=== PATIENT | male | born 1990 | race Caucasian/White ===

== ENCOUNTER → 2021-03-13 10:56 | Outpatient (BNVA) | payer OTHER, SELFPAY | PROVIDERS: PCP Internal Medicine; Referring Provider Internal Medicine; Visit Provider Surgery | DX: K62.89 Other specified diseases of anus and rectum (principal) | CPT/HCPCS: 46600; 99202 ==

== ENCOUNTER 2022-05-23 17:10 | Emergency (ER) | payer OTHER, SELFPAY ==
--- NOTE | ~2022-05-23 | XR_ITS ---
EXAMINATION: XR LUMBOSACRAL SPINE CLINICAL INFORMATION: Injury. Evaluate for fracture. COMPARISON: None TECHNIQUE: Three views of the lumbosacral spine. FINDINGS: Mild levocurvature and mild loss of lordotic curvature of the lumbar spine. The lumbar vertebra have normal density, height and alignment. The anterior and posterior elements are normal. No evidence of vertebral compression fracture. The disc spaces are maintained. Sacrum and sacroiliac joints are unremarkable. The soft tissues are grossly normal. XR/XR lumbar spine 2-3V IMPRESSION: * No acute fracture or malalignment of the lumbar spine. * The findings of mild lumbar levocurvature and decreased lordotic curvature are of uncertain chronicity.
[2022-05-23 17:21] VITALS: BP 114/68; BP 138/64; PULSE 84; PULSE 88; RESP 16; TEMP 36.3; O2SAT 98; BMI 38.2
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
== END 2022-05-23 20:07 | disposition home or self-care (01) ==
PROVIDERS: Emergency Provider Student in an Organized Health Care Education/Training Program; PCP Internal Medicine
DX: M54.50 Low back pain, unspecified (principal)
CPT/HCPCS: 72100; 99283; 99284

== ENCOUNTER 2022-10-03 07:59 | Outpatient (REF) | payer OTHER, SELFPAY ==
[2022-10-03 08:15] LABS: MANUAL DIFF FLAG NO
[2022-10-03 08:21] LABS: Basophils Percent Auto 0.4 % (0-2); Eosinophils Absolute Auto 0.1 X10*3/uL (0.0-0.4); Eosinophils Percent Auto 1.8 % (0-4); Hematocrit 45.5 % (42.0-52.0); Hemoglobin 14.9 g/dl (14.0-18.0); Imm Gran Abs Auto 0.03 X10*3/uL (0.00-0.03); Imm Gran Pct Auto 0.4 % (0.0-0.4); Lymphocytes Absolute Auto 1.9 X10*3/uL (1.2-4.9); Lymphocytes Percent Auto 23.6 % (20-40); Mean Corpuscular HGB Conc 32.7 g/dl (31.0-36.0); Mean Corpuscular Hemoglobin 28.4 pg (27.0-33.0); Mean Corpuscular Volume 86.8 fL (80.0-98.0); Mean Platelet Volume 9.8 fL (9.4-12.4); Monocytes Absolute Auto 0.4 X10*3/uL (0.1-1.2); Monocytes Percent Auto 5.6 % (2-11); Neutrophils Absolute Auto 5.4 x10*3/uL (2.0-8.3); Neutrophils Percent Auto 68.2 % (45-73); Platelet Count 274 X10*3/uL (160-400); Red Blood Count 5.24 X10*6/uL (4.60-5.80); Red Cell Distribution Width 12.4 % (11.0-16.0); White Blood Count 7.9 X10*3/uL (4.8-10.8)
[2022-10-03 09:02] LABS: Appearance Urine Clear; Color Urine Yellow; Glucose Urine UA Negative (Negative); Leukocyte Esterase Urine Negative (Negative); Nitrite Urine Negative (Negative); Urine Blood Negative (Negative); Urine Ketones Negative (Negative); Urine Protein Negative (Neg-Trace)
[2022-10-03 09:05] LABS: Bacteria Urine None Seen (None Seen); Hyaline Casts Urine 0-2 /LPF (0-2); RBC Urine 0-2 /HPF (0-2); Squamous Epithelial Cell Urine 0-2 /HPF (0-2); WBC Urine 0-5 /HPF (0-5)
[2022-10-03 09:09] LABS: Alanine Aminotransferase 23 U/L (0-40); Albumin Level 4.3 g/dL (3.5-5.0); Alkaline Phosphatase 80 U/L (39-117); Anion Gap 9 (12-20); Aspartate Amino Transferase 16 U/L (5-37); Bilirubin Total 0.5 mg/dL (0.0-1.0); Blood Urea Nitrogen 11 mg/dL (9-16); Calcium 9.4 mg/dL (8.4-10.2); Carbon Dioxide 24 mmol/L (22-29); Chloride 111 mmol/L (96-108); Cholesterol 137 mg/dL; Estimated Glomerular Filt Rate > 60; Free T4 (Free Thyroxine) 1.07 ng/dL (0.71-1.85); Glucose Random 96 mg/dL (60-115); HDL Cholesterol 37 mg/dL; LDL Cholesterol Calculated 89 mg/dl; Potassium 4.2 mmol/L (3.3-5.1); Sodium 140 mmol/L (135-145); Total Protein 6.7 g/dL (6.5-8.0); Triglycerides 58 mg/dL
[2022-10-03 09:21] LABS: Folate 8.3 ng/mL (> or = 4.0); Vitamin B12 476 pg/mL (200-900)
== END 2022-10-03 08:00 | disposition home or self-care (01) ==
LOC: HO.LAB 07:59
PROVIDERS: PCP Internal Medicine; Visit Provider Internal Medicine
DX: R56.9 Unspecified convulsions (principal); E78.00 Pure hypercholesterolemia, unspecified
CPT/HCPCS: 36415; 80053; 80061; 81001; 82607; 82746; 84439; 84443; 85025

== ENCOUNTER 2023-04-28 12:31 | Outpatient (AMB) | payer OTHER, SELFPAY ==
--- NOTE | 2023-04-28 12:32 | MHC.OFFWIV ---
Intake Vital Signs 04/28/23 12:33 Height 5 ft 6 in BP 122/78 Blood Pressure Location Rt brachial Position Sitting Pulse 76 Pulse Source Pulse Oximeter Temp 96.8 F Temp Source Temporal Artery Scan Pulse Oximetry (%) 98 Oxygen Delivery Method Room Air Intake Visit Reasons: EST/yeast rash Intake Note: pt is here for c/o possible yeast rash buttocks Patient Tobacco Use Status: Never used Tobacco Allergies amoxicillin [AMOXICILLIN] Allergy (Unknown, Verified 04/28/23 12:35) Unknown codeine [CODEINE] Allergy (Unknown, Verified 04/28/23 12:35) Unknown lorazepam [From ATIVAN] Allergy (Unknown, Verified 04/28/23 12:35) Unknown Do you need a note to return to daycare/school/sports/work: No HPI HPI Comments History of Present Illness Details 891 32-year-old male presents with red rash between his buttocks started this morning history of CVA, bipolar, seizures. Patient states he has been cleaning it with soap and water but it is not making symptoms better. He is coming from day program with staff member at bedside who states patient has only been complaining of symptoms for a day. Patient poor historian. However, denies fevers, chills, chest pain, shortness of breath, nausea, vomiting, headache, vision changes, fatigue and malaise. On exam erythema and warmth right buttocks , medial aspect , central induration however no fluctuance. Area measuring about 2 cm x 2 cm, round. likely cellulitis with forming abscess. No fluctuance or drainable abscess at this time. No signs of necrotizing infection or fourniers gangrene plan p.o. antibiotics, doxycycline as patient has an amoxicillin allergy. Educated patient on diagnosis and treatment plan, answered all question, patient verbalizes understanding. At this time patient will be discharged home, advised to return with new or worsening symptoms. Educated on worrisome signs and symptoms and when to return. At this time I feel comfortable discharge home. [facility] Medical History Anal pain Annual physical exam Arthralgia Cognitive impairment CVA (cerebral vascular accident) Generalized anxiety disorder Meningitis Mood disorder Seizure Seizures Surgical History History of ankle surgery History of surgery on arm History of surgery on lower extremity Family History Maternal Grandfather Myocardial infarct Social History Housing: Assisted Living Facility Alcohol intake: never Patient Tobacco Use Status: Never used Tobacco e-Cigarette/Vaping Use: Never Used Second Hand Smoke Exposure: No service: No Current occupational status: unemployed Cognitive needs: Yes Hearing needs: No Vision needs: No Review of Systems Const Details: Constitutional : No Weight loss, No Fever, No Chills, No Fatigue, No Malaise ENT/Mouth : No sore throat, No Rhinorrhea Eyes: No Eye Pain, No Swelling, No Redness Cardiovascular : No Chest Pain, No SOB, No Dyspnea on Exertion, No Orthopnea, No Edema, No Palpitations Respiratory : No Cough, No Sputum, No Wheezing Gastrointestinal : No Nausea, No Vomiting, No Diarrhea, No Constipation, No abdominal Pain, No Hematochezia, No Melena Genitourinary : No Dysuria, No Urinary Frequency, No Hematuria, Musculoskeletal : No joint pain, No Myalgias, No Joint Swelling Skin : No Skin Lesions, + rash Neuro : No Weakness, No Numbness, No Dizziness, No Headache Psych : No Anxiety/Panic, No Depression All other systems reviewed and are negative All systems reviewed & are unremarkable except as noted in HPI and below Physical Exam Vital Signs: Last Vital Signs Temp 96.8 F 04/28/23 12:33 Pulse 76 04/28/23 12:33 BP 122/78 04/28/23 12:33 Pulse Ox 98 04/28/23 12:33 Oxygen Delivery Method Room Air 04/28/23 12:33 vss Appearance: Alert.? Oriented X3.? No acute distress.? Head: Normocephalic, atraumatic, no step-offs or deformities Eyes: Pupils equal, round and reactive to light.? CVS: Normal heart rate and rhythm.? Pulses normal.? Respiratory: No respiratory distress.? Breath sounds normal.? Abdomen: Soft and nontender.? Skin: Skin warm and dry.? Normal skin color.? Normal skin turgor.? Extremities: No lower extremity edema.? No calf ttp. 5/5 strength to bilateral upper and lower extremities erythema and warmth right buttocks , medial aspect , central induration however no fluctuance. Area measuring about 2 cm x 2 cm, round. Back: No midline tenderness, no C-spine tenderness, full range of motion, no CVA tenderness bilaterally Neuro: Oriented X 3.? No motor deficit.? No sensory deficit. CN 2-12 intact Assessment & Plan Assessment & Plan (1) Acute cellulitis: Code(s): L03.90 - Cellulitis, unspecified Plan Take your medications as prescribed. If you were prescribed antibiotics today, it is important that you take your medication to their entirety, do not skip any doses, do not finish them early. Follow-up with your primary care provider this week. Return to the emergency department with new or worsening symptoms. Such as fevers, chills, chest pain, shortness of breath, nausea, vomiting, dizziness, headache, vision changes, lethargy In case of emergency call 911 Medications: New doxycycline hyclate 100 mg PO BID 7 days 14 caps 0RF Coding Level of Care Code Est Pt Level 3 (43213) Diagnoses Acute cellulitis L03.90
[2023-04-28 12:33] VITALS: BP 122/78; PULSE 76; TEMP 36; O2SAT 98
== END 2023-04-28 13:20 | disposition home or self-care (01) ==
PROVIDERS: PCP Internal Medicine; Visit Provider Physician Assistant
DX: L03.90 Cellulitis, unspecified (principal)
CPT/HCPCS: 99213

== ENCOUNTER 2023-05-24 11:40 | Outpatient (AMB) | payer OTHER, SELFPAY ==
[2023-05-24 12:01] VITALS: BP 128/62; PULSE 97; TEMP 35.8; O2SAT 100
--- NOTE | 2023-05-24 12:01 | AM.OFFWIN_ITS ---
Intake Vital Signs 05/24/23 12:01 Height 5 ft 6 in BP 128/62 Blood Pressure Location Lt brachial Position Sitting Pulse 97 Pulse Source Pulse Oximeter Temp 96.4 F L Temp Source Temporal Artery Scan Pulse Oximetry (%) 100 Oxygen Delivery Method Room Air Intake Visit Reasons: EP ?Cyst on butt Intake Note: Pt is here c/o having a possible cyst Patient Tobacco Use Status: Never used Tobacco Allergies amoxicillin [AMOXICILLIN] Allergy (Unknown, Verified 05/24/23 12:19) Unknown codeine [CODEINE] Allergy (Unknown, Verified 05/24/23 12:19) Unknown lorazepam [From ATIVAN] Allergy (Unknown, Verified 05/24/23 12:19) Unknown Do you need a note to return to daycare/school/sports/work: No HPI EP ?Cyst on butt HPI Details Patient presents with pain in his rectal area x2 days. He states ?I have caught it in time this time ?. Patient lives in a nursing home and presents with a staff member who assists with HPI today. He was seen in this clinic 1 month ago for a perirectal cyst which did not require I&D and was treated with doxycycline successfully. He has now been off antibiotics for over 2 weeks any starting to experience pain again. Did review note from his previous visit. [facility] Medical History Anal pain Annual physical exam Arthralgia Cognitive impairment CVA (cerebral vascular accident) Generalized anxiety disorder Meningitis Mood disorder Seizure Seizures Surgical History History of ankle surgery History of surgery on arm History of surgery on lower extremity Family History Maternal Grandfather Myocardial infarct Social History Housing: Assisted Living Facility Alcohol intake: never Patient Tobacco Use Status: Never used Tobacco e-Cigarette/Vaping Use: Never Used Second Hand Smoke Exposure: No service: No Current occupational status: unemployed Cognitive needs: Yes Hearing needs: No Vision needs: No Review of Systems Const Reports as per HPI and Reports no additional complaints Reports no additional complaints and Reports as per HPI Skin/Breast Denies lesions Physical Exam Vital Signs: Last Vital Signs Temp 96.4 F L 05/24/23 12:01 Pulse 97 05/24/23 12:01 BP 128/62 05/24/23 12:01 Pulse Ox 100 05/24/23 12:01 Oxygen Delivery Method Room Air 05/24/23 12:01 Const General: cooperative, comfortable and no acute distress Orientation/consciousness: patient oriented x3 Resp Effort & Inspection: normal respiratory effort Auscultation: clear to auscultation bilaterally Cardio Rate: regular rate Rhythm: regular rhythm Heart sounds: S1 normal heart sound present and S2 normal heart sound present GI Other: Area of tenderness without abscess or induration there is first-degree skin breakdown of the right side of the perirectal area in the fold less than 1 cm in size. Rectal Exam - Male: Yes Visual inspection abnormal (See above description) and No External hemorrhoid(s) present Neuro General: patient oriented x3 Assessment & Plan Assessment & Plan (1) Perirectal skin irritation: Code(s): K62.89 - Other specified diseases of anus and rectum Plan: Will have patient another course of doxycycline given potential for abscess. I have also prescribed A and D type barrier cream to use after bathing and BMs to help prevent skin breakdown. [facility] should follow this closely patient is quite capable of stating when he has pain and he should return him if symptoms do not improve or return. Medications: New doxycycline hyclate 100 mg PO BID 20 caps 0RF 10 days [id number] A-[id number] 1-10 % (A and D Diaper Rash Cream) topically daily PRN; apply after bathing and BMs. 42.5 grams 1RF skin irritation Coding Level of Care Code Est Pt Level 3 (66972) Diagnoses Perirectal skin irritation K62.89
== END 2023-05-24 12:57 | disposition home or self-care (01) ==
PROVIDERS: PCP Internal Medicine; Visit Provider Physician Assistant
DX: K62.89 Other specified diseases of anus and rectum (principal)
CPT/HCPCS: 99213

== ENCOUNTER 2023-06-10 07:53 | Outpatient (AMB) | payer OTHER, SELFPAY ==
[2023-06-10 08:07] VITALS: BP 124/76; PULSE 59; O2SAT 98; BMI 39.1
--- NOTE | 2023-06-10 08:07 | MHC.PC.OV ---
Vital Signs 06/10/23 08:07 Height 5 ft 6 in Weight 242 lb BMI 39.1 BP 124/76 Blood Pressure Location Lt brachial Position Sitting Pulse 59 Pulse Source Pulse Oximeter Pulse Oximetry (%) 98 Oxygen Delivery Method Room Air Intake Visit Reasons: follow up with cyst Allergies amoxicillin [AMOXICILLIN] Allergy (Unknown, Verified 06/10/23 08:08) Unknown codeine [CODEINE] Allergy (Unknown, Verified 06/10/23 08:08) Unknown lorazepam [From ATIVAN] Allergy (Unknown, Verified 06/10/23 08:08) Unknown Tobacco use date assessed: 06/10/23 Dental Screening Dental Screen Date: 06/10/23 Did you have a dental visit in the last 12 months?: Yes Did you have a dental problem in the last 6 months where you did not have access to dental care?: No Was dental information given to patient?: Patient has dentist HPI HPI Comments History of Present Illness Details ?? 32-year-old male history of CVA at , bipolar,seizure and arthralgia.? Patient last seen in September, patient presents today for follow-up on cyst. Review of the notes patient was seen in the walk-in clinic multiple times for rectal pain and irritation treated with doxycycline x 2, peter-rectal cyst did not require I&D. Patient long term working states cyst resolved. Patient denies trinh rectal pain, fevers and chills. Upon examination right rectal sbcess resolved, no surrounding erythema. [facility] woul like to continue applying A+D ointment as it is preventing irritation, refill sent on ointment. Patient reports popping right ear and unable to hear. Exam revealed,Impacted bilateral cerumen, Small amount of cerumen removed in office by lefty, patient tolerated well. Denies pain, lightheadedness/dizziness. Debrox drops sent to patient's pharmacy and patient advised to follow up in 2 weeks for ear lavage. [facility] Medical History Anal pain Annual physical exam Arthralgia Cognitive impairment CVA (cerebral vascular accident) Generalized anxiety disorder Meningitis Mood disorder Seizure Seizures Surgical History History of ankle surgery History of surgery on arm History of surgery on lower extremity Family History (Updated 06/10/23 @ 08:09 by Raina Benavides CMA) Maternal Grandfather Myocardial infarct Social History Housing: Assisted Living Facility Alcohol intake: never Patient Tobacco Use Status: Never used Tobacco e-Cigarette/Vaping Use: Never Used Second Hand Smoke Exposure: No service: No Current occupational status: unemployed Cognitive needs: Yes Hearing needs: No Vision needs: No Questionnaire PHQ-9 Over the last 2 weeks, how often have you been bothered by any of the following problems? 1. Little interest or pleasure in doing things: not at all 2. Feeling down, depressed, or hopeless: not at all 3. Trouble falling or staying asleep, or sleeping too much: not at all 4. Feeling tired or having little energy: not at all 5. Poor appetite or overeating: not at all 6. Feeling bad about yourself - or that you are a failure or have let yourself or your family down: not at all 7. Trouble concentrating on things, such as reading the newspaper or watching television: not at all 8. Moving or speaking so slowly that other people could have noticed. Or the opposite - being so fidgety or restless that you have been moving around a lot more than usual: not at all 9. Thoughts that you would be better off or of hurting yourself in some way: not at all Total score: 0 Depression Screening Interpretation: Negative Source: Developed by Drs. Brody Sarabia, Marion Richardson, Eric Peraza and colleagues, with an educational kath from [employer]. Thrive Questionnaire Date Thrive assessed: 06/10/23 I am a: Parent/Caregiver What is your living situation today?: I have a steady place to live Within the past 12 months, did the food you bought not last and you didn't have the money to get more?: Never true Within the past 12 months, did you worry whether your food would run out before you got money to buy more?: Never true Do you have trouble paying for medicines?: No Do you have trouble getting transportation to medical appointments?: No Do you have trouble paying your heating and electricity bill?: No Do you have trouble taking care of your child, family member or friend?: No Do you have trouble with day-to-day activities such as bathing, preparing meals, shopping, managing finances, etc.?: No Are you currently unemployed and looking for a job?: No Are you interested in more education?: No Currently or been in a relationship where the following occur: no concerns reported AUDIT C Alcohol Use Questionnaire (AUDIT-C) 1. How often do you have a drink containing alcohol?: Never Total Score: 0 ROLAND-7 AMB Questionnaire ROLAND-7 Date ROLAND - 7 assessed: 06/10/23 Feeling nervous, anxious, or on edge: 0 = Not at all Not being able to stop or control worryin = Not at all Worrying too much about different things: 0 = Not at all Trouble relaxin = Not at all Being so restless that it is hard to sit still: 0 = Not at all Becoming easily annoyed or irritable: 0 = Not at all Feeling afraid as if something awful might happen: 0 = Not at all Total ROLAND-7 score (0-4 normal; 5-9 mild; 10-14 moderate; 15-21 severe): 0 Source: Developed by Drs. Brody Sarabia, Marion Richardson, Eric Peraza and colleagues, with an educational kath from [employer]. Review of Systems Const Denies chills, Denies fatigue, Denies fever(s) and Denies poor appetite Eyes Denies no additional complaints ENT Reports Normal hearing present Card Denies chest pain, Denies syncope, Denies rapid heart rate and Denies dyspnea Resp Denies cough and Denies dyspnea GI Denies change in stool character, Denies constipation, Denies diarrhea, Denies nausea and Denies vomiting Denies dysuria, Denies urinary frequency and Denies urinary urgency Neuro Reports Normal hearing present, Denies confusion and Denies syncope Psych Denies confusion Endo Denies fatigue Physical exam (Primary Care) Vital Signs: Last Vital Signs Pulse 59 06/10/23 08:07 BP 124/76 06/10/23 08:07 Pulse Ox 98 06/10/23 08:07 Oxygen Delivery Method Room Air 06/10/23 08:07 BMI result Body Mass Index 39.1 Tobacco/Smoking Status: Tobacco use Status Tobacco use date assessed 06/10/23 06/10/23 08:13 Patient Tobacco Use Status Never used Tobacco 06/10/23 08:13 e-Cigarette/Vaping Use Never Used 06/10/23 08:13 PHQ-9: PHQ-9 Score PHQ-9: Total score 0 06/10/23 08:15 Depression Screening Interpretation: Negative Thrive Assessment: Date of Thrive Assessment Date Thrive assessed 06/10/23 06/10/23 08:13 Currently or been in a relationship where the following occur: no concerns reported Const General: No confusion Orientation/consciousness: No confusion HENMT Head: Yes normocephalic and Yes atraumatic Ears: TM abnormal obstructed by cerumen bilateral Eyes Conjunctivae: conjunctivae normal Chest Chest palpation & inspection: normal inspection of the chest Resp Effort & Inspection: normal respiratory effort Auscultation: clear to auscultation bilaterally, no crackles, no rhonchi and no wheezes Cardio Rate: regular rate Rhythm: regular rhythm Heart sounds: S1 normal heart sound present and S2 normal heart sound present Peripheral pulses: dorsalis pedis present GI Inspection: Yes normal to inspection General: Yes no CVA tenderness Back/Spine/Pelvis Back: no CVA tenderness Neuro General: No confusion Cranial nerves: Yes Normal hearing present Extrem General: No edema Assessment and Plan Assessment & Plan (1) Impacted cerumen of both ears: Code(s): H61.23 - Impacted cerumen, bilateral Plan: Debrox drops sent to patient's pharmacy. Follow-up in 2 weeks for ear lavage. (2) Bipolar 1 disorder: Comment: Dr. Morrow Code(s): F31.9 - Bipolar disorder, unspecified Plan: Continue on current medications. (3) Seizures: Comment: Dr. Alvarado. last seizure 2011, GRand MAl Code(s): R56.9 - Unspecified convulsions Plan: Continue non lamotrigine 250mg BID. Cotninue to follow with Neurology. Plan Follwo up in 2 weeks for Ear lavage. Medications: New carbamide peroxide 6.5% (Debrox) 5 drps otic (ears) DAILY 4 days 15 mL 0RF Refilled [id number]-[id number] A-D-aloe 1-10 % (A and D Diaper Rash Cream) topically daily PRN; apply after bathing and BMs. 42.5 grams 1RF skin irritation Coding Level of Care Code Est Pt Level 4 (95431) Diagnoses Impacted cerumen of both ears H61.23 Bipolar 1 disorder F31.9 Seizures R56.9
== END 2023-06-10 08:36 | disposition home or self-care (01) ==
PROVIDERS: PCP Internal Medicine; Visit Provider Nurse Practitioner Family
DX: H61.23 Impacted cerumen, bilateral (principal); F31.9 Bipolar disorder, unspecified; R56.9 Unspecified convulsions
CPT/HCPCS: 99214

== ENCOUNTER 2023-06-24 14:41 | Outpatient (AMB) | payer OTHER, SELFPAY ==
[2023-06-24 14:42] VITALS: BP 119/70; PULSE 87; O2SAT 98; BMI 38.4
--- NOTE | 2023-06-24 14:42 | MHC.PC.OV ---
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 Accompanied by: Self / Same As Patient Allergies amoxicillin [AMOXICILLIN] Allergy (Unknown, Verified 06/24/23 14:43) Unknown codeine [CODEINE] Allergy (Unknown, Verified 06/24/23 14:43) Unknown lorazepam [From ATIVAN] Allergy (Unknown, Verified 06/24/23 14:43) Unknown Tobacco use date assessed: 06/10/23 Dental Screening Dental Screen Date: 06/24/23 Did you have a dental visit in the last 12 months?: Yes Did you have a dental problem in the last 6 months where you did not have access to dental care?: No Was dental information given to patient?: Patient has dentist HPI HPI Comments History of Present Illness Details 32-year-old male history of CVA at , bipolar,seizure and arthralgia.? Patient last seen in May, patient presents today bilateral Ear lavage. Patient tolerated procedure well denies any otalgia, lightheadedness or dizziness. Bilateral canals clear on completion of ear flushing and TMs intact. [facility] Medical History Generalized anxiety disorder Seizures Arthralgia Anal pain Annual physical exam Cognitive impairment Mood disorder Seizure Meningitis CVA (cerebral vascular accident) Surgical History History of surgery on lower extremity History of surgery on arm History of ankle surgery Family History Maternal Grandfather Myocardial infarct Social History Housing: Assisted Living Facility Alcohol intake: never Patient Tobacco Use Status: Never used Tobacco e-Cigarette/Vaping Use: Never Used Second Hand Smoke Exposure: No service: No Current occupational status: unemployed Cognitive needs: Yes Hearing needs: No Vision needs: No Questionnaire PHQ-9 Over the last 2 weeks, how often have you been bothered by any of the following problems? 1. Little interest or pleasure in doing things: not at all 2. Feeling down, depressed, or hopeless: not at all 3. Trouble falling or staying asleep, or sleeping too much: not at all 4. Feeling tired or having little energy: not at all 5. Poor appetite or overeating: not at all 6. Feeling bad about yourself - or that you are a failure or have let yourself or your family down: not at all 7. Trouble concentrating on things, such as reading the newspaper or watching television: not at all 8. Moving or speaking so slowly that other people could have noticed. Or the opposite - being so fidgety or restless that you have been moving around a lot more than usual: not at all 9. Thoughts that you would be better off or of hurting yourself in some way: not at all Total score: 0 Depression Screening Interpretation: Negative Source: Developed by Drs. Brody Sarabia, Marion Richardson, Eric Peraza and colleagues, with an educational kath from [employer]. Thrive Questionnaire Date Thrive assessed: 06/10/23 AUDIT C Alcohol Use Questionnaire (AUDIT-C) 1. How often do you have a drink containing alcohol?: Never Total Score: 0 ROLAND-7 AMB Questionnaire ROLAND-7 Date ROLAND - 7 assessed: 06/10/23 Source: Developed by Drs. Brody Sarabia, Marion Richardson, Eric Peraza and colleagues, with an educational kath from [employer]. Review of Systems Neuro Denies confusion Psych Denies confusion Physical exam (Primary Care) Vital Signs: Last Vital Signs Pulse 87 06/24/23 14:42 BP 119/70 06/24/23 14:42 Pulse Ox 98 06/24/23 14:42 Oxygen Delivery Method Room Air 06/24/23 14:42 BMI result Body Mass Index 38.4 Tobacco/Smoking Status: Tobacco use Status Tobacco use date assessed 06/10/23 06/24/23 14:45 Patient Tobacco Use Status Never used Tobacco 06/24/23 14:45 e-Cigarette/Vaping Use Never Used 06/24/23 14:45 PHQ-9: PHQ-9 Score PHQ-9: Total score 0 06/24/23 14:45 Depression Screening Interpretation: Negative Thrive Assessment: Date of Thrive Assessment Date Thrive assessed 06/10/23 06/24/23 14:45 Const General: cooperative and healthy appearing; No acute distress or confusion Orientation/consciousness: No confusion HENMT Ears: external ears normal and TM's normal bilaterally Neuro General: No confusion Office Procedures Cerumen Removal From which ear canal was the cerumen removed: bilateral Removal: irrigation Notes: patient tolerated procedure well, no complications and ear canal clear [id number] Irrigation/Lavage Assessment and Plan Assessment & Plan (1) Impacted cerumen of both ears: Code(s): H61.23 - Impacted cerumen, bilateral Plan: Bilateral ears flushed, patient tolerated procedure well no complaints ear pain, lightheadedness or dizziness. Canals clear and TMs upon completion of your flushing. Follow-up p.r.n. Plan Keep scheduled with PCP or sooner if needed. Coding Level of Care Code Est Pt Level 3 (18175) Diagnoses Impacted cerumen of both ears H61.23 CPT Codes Office Procedure - CPT: 18591-Utp Irrigation/Lavage ([id number])
== END 2023-06-24 15:11 | disposition home or self-care (01) ==
PROVIDERS: PCP Internal Medicine; Visit Provider Nurse Practitioner Family
DX: H61.23 Impacted cerumen, bilateral (principal)
CPT/HCPCS: 69209; 99213

== ENCOUNTER 2023-10-05 16:24 | Outpatient (AMB) | payer OTHER, SELFPAY ==
[2023-10-05 16:29] VITALS: BP 126/70; PULSE 84; O2SAT 99; BMI 37.9
--- NOTE | 2023-10-05 16:29 | A.OFFPC_ITS ---
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 guanfacine 2 mg PO BEDTIME lactase (Lactaid) 3,000 units PO BID PRN lamotrigine 200 mg PO BID lamotrigine 50 mg PO BID loperamide 2 mg PO BID PRN melatonin 5 mg PO .QHS meloxicam 15 mg PO DAILY miconazole nitrate 2% (Zeasorb AF) 1 appl topical BID risperidone 2 mg PO BID topiramate (Topamax) 200 mg PO BID Tobacco use date assessed: 10/05/23 Dental Screening Dental Screen Date: 10/05/23 Did you have a dental visit in the last 12 months?: Yes Did you have a dental problem in the last 6 months where you did not have access to dental care?: No Was dental information given to patient?: Patient has dentist HPI Physical HPI Details 33-year-old obese male with a history of bipolar disorder seizures history of CVA coming in for physical exam last seen in June 2023. [facility] Medical History Generalized anxiety disorder Seizures Arthralgia Anal pain Annual physical exam Cognitive impairment Mood disorder Seizure Meningitis CVA (cerebral vascular accident) Surgical History History of surgery on lower extremity History of surgery on arm History of ankle surgery Family History Maternal Grandfather Myocardial infarct Social History Housing: Assisted Living Facility Alcohol intake: never Patient Tobacco Use Status: Never used Tobacco e-Cigarette/Vaping Use: Never Used Second Hand Smoke Exposure: No service: No Current occupational status: unemployed Cognitive needs: Yes Hearing needs: No Vision needs: No Questionnaire PHQ-9 Over the last 2 weeks, how often have you been bothered by any of the following problems? 1. Little interest or pleasure in doing things: not at all 2. Feeling down, depressed, or hopeless: not at all 3. Trouble falling or staying asleep, or sleeping too much: not at all 4. Feeling tired or having little energy: not at all 5. Poor appetite or overeating: not at all 6. Feeling bad about yourself - or that you are a failure or have let yourself or your family down: not at all 7. Trouble concentrating on things, such as reading the newspaper or watching television: not at all 8. Moving or speaking so slowly that other people could have noticed. Or the opposite - being so fidgety or restless that you have been moving around a lot more than usual: not at all 9. Thoughts that you would be better off or of hurting yourself in some way: not at all Total score: 0 Source: Developed by Drs. Brody Sarabia, Marion Richardson, Eric Peraza and colleagues, with an educational kath from [employer]. Thrive Questionnaire Date Thrive assessed: 06/10/23 I am a: Patient What is your living situation today?: I have a steady place to live Within the past 12 months, did the food you bought not last and you didn't have the money to get more?: Never true Within the past 12 months, did you worry whether your food would run out before you got money to buy more?: Never true AUDIT C Alcohol Use Questionnaire (AUDIT-C) 1. How often do you have a drink containing alcohol?: Never 3. How often do you have six or more drinks on one occasion?: Never Total Score: 0 ROLAND-7 AMB Questionnaire ROLAND-7 Date ROLAND - 7 assessed: 10/05/23 Feeling nervous, anxious, or on edge: 0 = Not at all Not being able to stop or control worryin = Not at all Worrying too much about different things: 0 = Not at all Trouble relaxin = Not at all Being so restless that it is hard to sit still: 0 = Not at all Becoming easily annoyed or irritable: 0 = Not at all Feeling afraid as if something awful might happen: 0 = Not at all Total ROLAND-7 score (0-4 normal; 5-9 mild; 10-14 moderate; 15-21 severe): 0 Source: Developed by Drs. Brody Sarabia, Marion Richardson, Eric Peraza and colleagues, with an educational kath from [employer]. Review of Systems Const Denies poor appetite and Denies weakness Eyes Denies no additional complaints ENT Reports Normal hearing present, Denies dizziness, Denies nasal congestion, Denies tinnitus and Denies sore throat Card Denies chest pain, Denies syncope, Denies rapid heart rate and Denies dyspnea Resp Denies cough and Denies dyspnea GI Denies change in stool character, Reports constipation, Denies diarrhea, Denies nausea and Denies vomiting Denies dysuria and Denies urinary frequency Neuro Reports Normal hearing present, Denies confusion, Denies dizziness, Denies syncope and Denies weakness Psych Denies confusion Physical exam (Primary Care) Vital Signs: Last Vital Signs Pulse 84 10/05/23 16:29 BP 126/70 10/05/23 16:29 Pulse Ox 99 10/05/23 16:29 Oxygen Delivery Method Room Air 10/05/23 16:29 BMI result Body Mass Index 37.9 Tobacco/Smoking Status: Tobacco use Status Tobacco use date assessed 10/05/23 10/05/23 16:30 Patient Tobacco Use Status Never used Tobacco 10/05/23 16:30 e-Cigarette/Vaping Use Never Used 10/05/23 16:30 PHQ-9: PHQ-9 Score PHQ-9: Total score 0 10/05/23 17:15 Thrive Assessment: Date of Thrive Assessment Date Thrive assessed 06/10/23 10/05/23 16:30 Const General: No confusion Orientation/consciousness: No confusion HENMT Head: Yes normocephalic Ears: external ears normal and TM's normal bilaterally Face and sinus: Yes normal facial exam Mouth: moist mucous membranes Throat: Yes tonsils normal Eyes Conjunctivae: conjunctivae normal Pupils: Equal, round and reactive pupils present and Pupil accommodation reflex normal Direct Ophthalmoscopy: normal light reflex Neck Neck: No lymphadenopathy Thyroid: Thyroid normal Chest Chest palpation & inspection: normal inspection of the chest Resp Effort & Inspection: normal respiratory effort and no audible wheezes Auscultation: clear to auscultation bilaterally, no crackles, no wheezes and lung sounds not diminished Cardio Rate: regular rate Rhythm: regular rhythm Peripheral pulses: radial pulses present and dorsalis pedis present GI Palpation (GI): no masses Auscultation: normal bowel sounds and normoactive bowel sounds Rectal Exam - Male: Yes deferred Skin General skin exam: no rashes or lesions noted Rashes: no rashes Neuro Other: R arm weakness and R leg weakness. 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 General: No confusion Cranial nerves: Yes Equal, round and reactive pupils present and Yes Normal hearing present Cognition (Neuro): normal cognition Gait exam (Neuro): Normal gait present Motor exam (neuro): 5/5 motor strength present throughout Deep tendon reflexes (DTR's): Right brachioradialis reflex intensity grade: 2+, Left brachioradialis reflex intensity grade: 2+, Right patellar reflex intensity grade: 2+ and Left patellar reflex intensity grade: 2+ Extrem General: No edema Office Procedures Flu Questionnaire Does the patient have a severe egg allergy?: No Does the patient have severe life threatening allergies?: No Does the patient have a fever or illness today?: No Has the patient ever had Guillain-[place] Syndrome?: No Has the patient ever had any past reaction to a flu shot?: No Immunizations flu vacc [id number] 6mos up(PF) 60 mcg(15 mcgx4)/0.5 mL IM syringe Performing Provider: Charles Castaneda MD Performing Location: [facility] Administered by: BLAYNE Mireles on 10/05/23 17:57 Dose Route Admin Location Dispensed Lot Number Expiration Date NDC 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 Alvarado. last seizure 2011, GRand MAl Code(s): R56.9 - Unspecified convulsions Plan: Continue with present medication (3) Obesity (BMI 30-39.9): Code(s): E66.9 - Obesity, unspecified Plan: Diet and exercise (4) Bipolar 1 disorder: Comment: Dr. Morrow Code(s): F31.9 - Bipolar disorder, unspecified Plan: Continue with counseling and therapy Orders: Orders Lipid Panel Today E78.00 - Pure hypercholesterolemia, unspecified, R56.9 - Unspecified convulsions Vitamin B12 and Folate Today R56.9 - Unspecified convulsions Complete Blood Count Auto Diff Today R56.9 - Unspecified convulsions Comprehensive Met. Panel Today R56.9 - Unspecified convulsions Thyroid Stimulating Hormone Today R56.9 - Unspecified convulsions Free T4 (Free Thyroxine) Today R56.9 - Unspecified convulsions Medications: New meloxicam 15 mg PO DAILY PRN 20 tabs 0RF pain Coding Level of Care Code Est Pt Prev Care 18-39y(41361) Diagnoses Annual physical exam Z00.00 Seizures R56.9 Obesity (BMI 30-39.9) E66.9 Bipolar 1 disorder F31.9
== END 2023-10-05 17:46 | disposition home or self-care (01) ==
PROVIDERS: PCP Internal Medicine; Visit Provider Internal Medicine
DX: Z00.00 Encounter for general adult medical examination without abnormal findings (principal); R56.9 Unspecified convulsions; F31.9 Bipolar disorder, unspecified; Z23 Encounter for immunization; E66.9 Obesity, unspecified; Z68.37 Body mass index [BMI] 37.0-37.9, adult
CPT/HCPCS: 90471; 90686; 99395

== ENCOUNTER 2023-11-16 14:19 | Outpatient (AMB) | payer OTHER, SELFPAY ==
[2023-11-16 14:31] VITALS: BP 110/78; PULSE 100; O2SAT 98; BMI 38.2
--- NOTE | 2023-11-16 14:31 | MHC.PC.OV ---
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: No Narrative Writer: Not Required per policy Accompanied by: Self / Same As Patient Allergies amoxicillin [AMOXICILLIN] Allergy (Unknown, Verified 11/16/23 14:31) Unknown codeine [CODEINE] Allergy (Unknown, Verified 11/16/23 14:31) Unknown lorazepam [From ATIVAN] Allergy (Unknown, Verified 11/16/23 14:31) Unknown Tobacco use date assessed: 11/16/23 Dental Screening Dental Screen Date: 11/16/23 Did you have a dental visit in the last 12 months?: Yes Did you have a dental problem in the last 6 months where you did not have access to dental care?: No Was dental information given to patient?: Patient has dentist HPI urinary frequency HPI Details 33-year-old male from a assisted presents to the office for a sick visit. He is unable to give reliable history due to his cerebrovascular accident. Attendant along with him reports that patient has been urinating frequently. No change in behavior. No signs of confusion. [facility] Medical History Generalized anxiety disorder Seizures Arthralgia Anal pain Annual physical exam Cognitive impairment Mood disorder Seizure Meningitis CVA (cerebral vascular accident) Surgical History History of surgery on lower extremity History of surgery on arm History of ankle surgery Family History Maternal Grandfather Myocardial infarct Social History Housing: Assisted Living Facility Alcohol intake: never Patient Tobacco Use Status: Never used Tobacco e-Cigarette/Vaping Use: Never Used Second Hand Smoke Exposure: No service: No Current occupational status: unemployed Cognitive needs: Yes Hearing needs: No Vision needs: No Questionnaire PHQ-9 Over the last 2 weeks, how often have you been bothered by any of the following problems? 1. Little interest or pleasure in doing things: not at all 2. Feeling down, depressed, or hopeless: not at all 3. Trouble falling or staying asleep, or sleeping too much: not at all 4. Feeling tired or having little energy: not at all 5. Poor appetite or overeating: not at all 6. Feeling bad about yourself - or that you are a failure or have let yourself or your family down: not at all 7. Trouble concentrating on things, such as reading the newspaper or watching television: not at all 8. Moving or speaking so slowly that other people could have noticed. Or the opposite - being so fidgety or restless that you have been moving around a lot more than usual: not at all 9. Thoughts that you would be better off or of hurting yourself in some way: not at all Total score: 0 Source: Developed by Drs. Brody Sarabia, Marion Richardson, rEic Peraza and colleagues, with an educational kath from [employer]. Thrive Questionnaire Date Thrive assessed: 11/16/23 I am a: Patient What is your living situation today?: I have a steady place to live Within the past 12 months, did the food you bought not last and you didn't have the money to get more?: Never true Within the past 12 months, did you worry whether your food would run out before you got money to buy more?: Never true Do you have trouble paying for medicines?: No Do you have trouble getting transportation to medical appointments?: No Do you have trouble paying your heating and electricity bill?: No Do you have trouble taking care of your child, family member or friend?: No Do you have trouble with day-to-day activities such as bathing, preparing meals, shopping, managing finances, etc.?: No Are you currently unemployed and looking for a job?: No Are you interested in more education?: No Please select the resources that you would like help with: None THRIVE Score: 0 AUDIT C Alcohol Use Questionnaire (AUDIT-C) 1. How often do you have a drink containing alcohol?: Never 3. How often do you have six or more drinks on one occasion?: Never Total Score: 0 ROLAND-7 AMB Questionnaire ROLAND-7 Date ROLAND - 7 assessed: 11/16/23 Feeling nervous, anxious, or on edge: 0 = Not at all Not being able to stop or control worryin = Not at all Worrying too much about different things: 0 = Not at all Trouble relaxin = Not at all Being so restless that it is hard to sit still: 0 = Not at all Becoming easily annoyed or irritable: 0 = Not at all Feeling afraid as if something awful might happen: 0 = Not at all Total ROLAND-7 score (0-4 normal; 5-9 mild; 10-14 moderate; 15-21 severe): 0 Source: Developed by Drs. Brody Sarabia, Marion Richardson, Eric Peraza and colleagues, with an educational kath from [employer]. Physical exam (Primary Care) Vital Signs: Last Vital Signs Pulse 100 11/16/23 14:31 BP 110/78 11/16/23 14:31 Pulse Ox 98 11/16/23 14:31 Oxygen Delivery Method Room Air 11/16/23 14:31 BMI result Body Mass Index 38.2 Tobacco/Smoking Status: Tobacco use Status Tobacco use date assessed 11/16/23 11/16/23 14:33 Patient Tobacco Use Status Never used Tobacco 11/16/23 14:33 e-Cigarette/Vaping Use Never Used 11/16/23 14:33 PHQ-9: PHQ-9 Score PHQ-9: Total score 0 11/16/23 15:00 Thrive Assessment: Date of Thrive Assessment Date Thrive assessed 11/16/23 11/16/23 14:33 Other: No CVA tenderness. Results AMB Urinalysis, Automated UA Leukoctes 0 Danny/uL Last Edit by BLAYNE Nieto on 11/16/23 15:03 UA Nitrite Negative Last Edit by Crystal Menjivar A on 11/16/23 15:03 UA Urobilinogen 0.2 mg/dL Last Edit by BLAYNE Nieto on 11/16/23 15:03 UA Protein 0 mg/dL Last Edit by BLAYNE Nieto on 11/16/23 15:03 UA pH 6.0 Last Edit by BLAYNE Nieto on 11/16/23 15:03 UA Blood 0 [place]/uL Last Edit by Crystal Menjivar Carlene on 11/16/23 15:03 UA Specific [place] 1.025 Last Edit by Crystal Menjivar, RMA on 11/16/23 15:03 UA Ketone Negative Last Edit by Crystal Menjivar, RMA on 11/16/23 15:03 UA Bilirubin 0 mg/dL Last Edit by Crystal Menjivar, RMA on 11/16/23 15:03 UA Glucose 0 mg/dL Last Edit by Crystal Menjivar, RMA on 11/16/23 15:03 Assessment and Plan Assessment & Plan (1) Urinary tract infection: Code(s): N39.0 - Urinary tract infection, site not specified Plan: Urinalysis did not reveal any infection. No medications were started. Orders: Orders AMB Urinalysis Automated Today Z13.9 - Encounter for screening, unspecified Coding Level of Care Code Est Pt Level 3 (39373) Diagnoses Urinary tract infection N39.0
== END 2023-11-16 15:18 | disposition home or self-care (01) ==
PROVIDERS: PCP Internal Medicine; Visit Provider Internal Medicine
DX: N39.0 Urinary tract infection, site not specified (principal)
CPT/HCPCS: 81003; 99213

== ENCOUNTER 2024-03-22 16:42 | Emergency (ER) | payer OTHER, SELFPAY ==
--- NOTE | ~2024-03-22 | XR_ITS ---
EXAMINATION: XR FOOT, LEFT CLINICAL INFORMATION: Left second toe pain and redness COMPARISON: None available. TECHNIQUE: AP, lateral, and oblique views of the left foot. FINDINGS: The bones and soft tissues are normal. No fracture. Alignment is anatomic. Joint spaces are maintained. XR/XR foot LT min 3V IMPRESSION: Normal left foot.
[2024-03-22 16:45] VITALS: BP 124/62; PULSE 104; RESP 16; TEMP 36; O2SAT 97; BMI 72.9
--- NOTE | 2024-03-22 16:46 | ED_ITS ---
HPI - General Adult General Chief complaint: Extremity Problem Stated complaint: blister on toe Time Seen by Provider: 03/22/24 17:03 Source: patient Mode of arrival: ambulatory Limitations: other (Cognitive impairment) History of Present Illness ED Provider: Natali Moulton PA-C HPI narrative: This is a 33 yo male pmh CVA, bipolar 1 disorder, ROLAND, seizures, obesity, urinary incontinence presents with left 2nd toe pain with erythema after mild swelling after stubbing his toe 4 times . Patient reports he stubbed his toe yesterday morning 4 times on his bed and is now having a stinging pain and mild pain with movement of his toe. Patient reports he is still able to ambulate without difficulty. Denies fever, chills, numbness, weakness, tingling, chest pain, sob, nausea, vomiting. Related Data Home Medications ?Medication ?Instructions ?Recorded ?Confirmed lamotrigine 200 mg tablet 200 mg PO BID 02/03/21 10/05/23 risperidone 2 mg tablet 2 mg PO BID 02/03/21 10/05/23 lamotrigine 100 mg tablet 50 mg PO BID 03/19/22 10/05/23 melatonin 5 mg capsule 5 mg PO .QHS 03/19/22 10/05/23 topiramate 200 mg tablet (Topamax) 200 mg PO BID 03/19/22 10/05/23 diazepam 5 mg tablet 30 mg PO BEDTIME PRN seizure 10/05/23 10/05/23 guanfacine 1 mg tablet 2 mg PO BEDTIME 10/05/23 10/05/23 Previous Rx's ?Medication ?Instructions ?Recorded miconazole nitrate 2 % topical 1 appl topical BID #71 grams 03/19/22 powder (Zeasorb AF) loperamide 2 mg tablet 2 mg PO BID PRN loose stool #180 06/15/22 tabs acetaminophen 500 mg tablet 500 mg PO Q6H PRN pain #90 tabs 11/16/22 dimethicone 1 %-zinc oxide 10 See Rx Instructions topical DAILY 06/10/23 %-vit A and D-aloe vera topical PRN skin irritation #42.5 grams cream (A and D Diaper Rash Cream) meloxicam 15 mg tablet 15 mg PO DAILY PRN pain #20 tabs 10/05/23 lactase 3,000 unit tablet (Lactaid) 3,000 unit PO BID PRN lactose 12/01/23 intolerance #180 tabs cetirizine 10 mg tablet (Zyrtec) 10 mg PO DAILY PRN allergy 01/10/24 symptoms #30 tabs bacitracin 500 unit/gram topical 1 appl topical Q8H #14 grams 03/22/24 ointment doxycycline hyclate 100 mg capsule 100 mg PO BID 10 days #20 caps 03/22/24 Allergies Allergy/AdvReac Type Severity Reaction Status Date / Time amoxicillin [AMOXICILLIN] Allergy Unknown Unknown Verified 03/22/24 16:47 codeine [CODEINE] Allergy Unknown Unknown Verified 03/22/24 16:47 lorazepam [From ATIVAN] Allergy Unknown Unknown Verified 03/22/24 16:47 Review of Systems 2 Review of Systems: Yes all other systems are reviewed and are negative PMFSH Past Medical History Attestation statement: The following information was validated with the patient. Source: old records reviewed and nursing notes reviewed Medical History Generalized anxiety disorder Seizures Arthralgia Anal pain Annual physical exam Cognitive impairment Mood disorder Seizure Meningitis CVA (cerebral vascular accident) Surgical History History of surgery on lower extremity History of surgery on arm History of ankle surgery Family History Family History Maternal Grandfather Myocardial infarct Social History Social History Housing: Assisted Living Facility Alcohol intake: never Patient Tobacco Use Status: Never used Tobacco e-Cigarette/Vaping Use: Never Used Second Hand Smoke Exposure: No Advance Directives: No Advance Directives Information Provided: No service: No Current occupational status: unemployed Cognitive needs: Yes Hearing needs: No Vision needs: No Physical Exam ED Vital Signs: Vital Signs - 24 hr 03/22/24 16:45 Temperature 96.8 F Pulse Rate 104 H Respiratory Rate 16 Blood Pressure 124/62 Pulse Oximetry 97 Oxygen Delivery Method Room Air BMI result Body Mass Index 72.9 vss. Appearance: Alert.? Oriented X3.? No acute distress.? Head: Normocephalic, atraumatic, no step-offs or deformities Neck: Normal inspection.? Neck supple.? CVS: Normal heart rate and rhythm.? Pulses normal.? Respiratory: No respiratory distress.? Breath sounds normal.? Abdomen: Soft and nontender.? Skin: Skin warm and dry.? Normal skin color.? Normal skin turgor.? Extremities: + Left 2nd toe erythematous and mild edema distally. Mild ttp but full ROM. 2+ dp and pt pulses equal and symmetric bilaterally. 5/5 strength to bilateral upper and lower extremities Back: No midline tenderness, no C-spine tenderness, full range of motion, no CVA tenderness bilaterally Neuro: Oriented X 3.? No motor deficit.? No sensory deficit. CN 2-12 intact . Ambulating with steady gait. Course Course Course Narrative: This is a rapid medical exam performed by Daniela Warren NP: Additional HPI, ROS, PE not included below will be deferred to primary provider. Patient is a 33-year-old male presenting to the ED with complaint of left 2nd toe pain, states stubbed toe four times. Erythema and swelling distally. Plan: xray Reevaluation(s) Reevaluation #1: xray still pending will not change managment. I do not suspect or see signs of osteomyeletiits. Plan dc home w/ doxy and bacitracin. Time: 17:35 Reevaluation #2: Educated patient on diagnosis and treatment plan, answered all question, patient verbalizes understanding. At this time patient will be discharged home, advised to return with new or worsening symptoms. Educated on worrisome signs and symptoms and when to return. At this time I feel comfortable discharge home. Medical Decision Making Medical Decision Making [facility] Narrative: 1715 33 yo male with left 2nd toe pain, erythema, and swelling after stubbing his toe 4 times yesterday morning. PE: + Left 2nd toe erythematous and mild edema distally. Mild ttp but full ROM. 2+ dp and pt pulses equal and symmetric bilaterally. 5/5 strength to bilateral upper and lower extremities. Ambulating with steady gait. Differential: Paronychia with cellulitis. Unlikely fracture or dislocation, threat to limb, neurovascular compromise, necrotizing infection, gout, septic joint, osteomyelitis. Plan: Imaging, antibiotics, discharge Differential Diagnosis Differential Diagnoses: The differential diagnosis associated with the presentation includes (Paronychia with cellulitis. Unlikely fracture or dislocation, threat to limb, neurovascular compromise, necrotizing infection, gout, septic joint, osteomyelitis. ) Paronychia with cellulitis. Unlikely fracture or dislocation, threat to limb, neurovascular compromise, necrotizing infection, gout, septic joint, osteomyelitis. Admission/Observation Consideration of admission/observation: Escalation of care including admission/observation considered (Unlikely) Radiology Impression Discussion of test interpretation with radiology: I have reviewed the radiologist's reading. Independent Historian Clinical information obtained from an independent historian. History obtained from or confirmed by: Other senior care staff member External Record Review External record reviewed: Inpatient record, Office record, Outpatient record, Prior outpatient labs, Prior outpatient radiology, Primary care record and Outside ED record Prescription Management I considered prescription management with: Antibiotic (Bacitracin and Doxycycline) Chronic Conditions Patient?s care impacted by: Other (ROLAND, seizures, obesity, allergic rhinitis, Bipolar 1 disorder) Discharge Plan Discharge Clinical Impression: Paronychia of second toe of left foot, Cellulitis Patient Disposition: Home, Self-Care Instructions: Paronychia (ED), Cellulitis (ED), Warm Compress or Soak (ED) Additional Instructions: Take your medications as prescribed. If you were prescribed antibiotics today, it is important that you take your medication to their entirety, do not skip any doses, do not finish them early. Follow-up with your primary care provider this week. Return to the emergency department with new or worsening symptoms. Such as fevers, chills, chest pain, shortness of breath, nausea, vomiting, dizziness, headache, vision changes, lethargy In case of emergency call 911 Prescriptions: New bacitracin 500 unit/gram ointment 1 appl topical Q8H Qty: 14 0RF doxycycline hyclate 100 mg capsule 100 mg PO BID 10 Days Qty: 20 0RF No Action loperamide 2 mg tablet 2 mg PO BID PRN (Reason: loose stool) Qty: 180 3RF acetaminophen 500 mg tablet 500 mg PO Q6H PRN (Reason: pain) Qty: 90 3RF lactase [Lactaid] 3,000 unit tablet 3,000 unit PO BID PRN (Reason: lactose intolerance) Qty: 180 3RF Rx Instructions: administer with meals and/or snacks cetirizine [Zyrtec] 10 mg tablet 10 mg PO DAILY PRN (Reason: allergy symptoms) Qty: 30 3RF risperidone 2 mg tablet 2 mg PO BID lamotrigine 200 mg tablet 200 mg PO BID lamotrigine 100 mg tablet 50 mg PO BID Patient Comments: Dr. Alvarado diazepam 5 mg tablet 30 mg PO BEDTIME PRN (Reason: seizure) Rx Instructions: DR. Alvarado melatonin 5 mg capsule 5 mg PO .QHS topiramate [Topamax] 200 mg tablet 200 mg PO BID Zeasorb AF 2 % powder 1 appl topical BID Qty: 71 2RF Rx Instructions: to R axilla and R groin guanfacine 1 mg tablet 2 mg PO BEDTIME A and D Diaper Rash Cream 1-10 % cream See Rx Instructions topical DAILY PRN (Reason: skin irritation) Qty: 42.5 1RF Rx Instructions: topically daily PRN; apply after bathing and BMs. meloxicam 15 mg tablet 15 mg PO DAILY PRN (Reason: pain) Qty: 20 0RF Referrals: Po,Charles Lazcano MD [Primary Care Provider] - 2 days Print Language: Uzbek
[2024-03-22 17:36] VITALS: BP 124/62; PULSE 104; RESP 16; TEMP 36; O2SAT 97
== END 2024-03-22 17:37 | disposition home or self-care (01) ==
PROVIDERS: Emergency Provider Student in an Organized Health Care Education/Training Program; PCP Internal Medicine
DX: L03.032 Cellulitis of left toe (principal); M79.675 Pain in left toe(s); Z79.899 Other long term (current) drug therapy
CPT/HCPCS: 73630; 99283

== ENCOUNTER 2024-03-31 15:19 | Outpatient (AMB) | payer OTHER, SELFPAY ==
[2024-03-31 15:21] VITALS: BP 102/64; PULSE 75; O2SAT 98; BMI 37.0
--- NOTE | 2024-03-31 15:21 | A.OFFPC_ITS ---
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 Last seen in 10/06/2023. Review of the notes in 03/06/2024 ER visit for 2nd toe pain left patient stubbed his toe on his bed. Patient is treated with bacitracin and doxycycline. [facility] Medical History (Updated 03/31/24 @ 15:48 by Charles Castaneda MD) Paronychia of second toe of left foot Generalized anxiety disorder Seizures Arthralgia Anal pain Annual physical exam Cognitive impairment Mood disorder Seizure Meningitis CVA (cerebral vascular accident) Surgical History History of surgery on lower extremity History of surgery on arm History of ankle surgery Family History Maternal Grandfather Myocardial infarct Social History Housing: Assisted Living Facility Alcohol intake: never Patient Tobacco Use Status: Never used Tobacco e-Cigarette/Vaping Use: Never Used Second Hand Smoke Exposure: No service: No Current occupational status: unemployed Cognitive needs: Yes Hearing needs: No Vision needs: No Questionnaire Thrive Questionnaire Date Thrive assessed: 11/16/23 I am a: Patient What is your living situation today?: I have a steady place to live Within the past 12 months, did the food you bought not last and you didn't have the money to get more?: Never true Within the past 12 months, did you worry whether your food would run out before you got money to buy more?: Never true Do you have trouble paying for medicines?: No Do you have trouble getting transportation to medical appointments?: No Do you have trouble paying your heating and electricity bill?: No Do you have trouble taking care of your child, family member or friend?: No Do you have trouble with day-to-day activities such as bathing, preparing meals, shopping, managing finances, etc.?: No Are you currently unemployed and looking for a job?: No Are you interested in more education?: No Please select the resources that you would like help with: None THRIVE Score: 0 AUDIT C Alcohol Use Questionnaire (AUDIT-C) 1. How often do you have a drink containing alcohol?: Never 3. How often do you have six or more drinks on one occasion?: Never Total Score: 0 ROLAND-7 AMB Questionnaire ROLAND-7 Date ROLAND - 7 assessed: 11/16/23 Source: Developed by Drs. Brody Sarabia, Marion Richardson, Eric Peraza and colleagues, with an educational kath from [employer]. Physical exam (Primary Care) Vital Signs: Last Vital Signs Pulse 75 03/31/24 15:21 BP 102/64 03/31/24 15:21 Pulse Ox 98 03/31/24 15:21 Oxygen Delivery Method Room Air 03/31/24 15:21 Care Plan Goal for BP management: L 2nd toe still has mild swelling on the base of toe nail BMI result Body Mass Index 37.0 Tobacco/Smoking Status: Tobacco use Status Tobacco use date assessed 03/31/24 03/31/24 15:23 Patient Tobacco Use Status Never used Tobacco 03/31/24 15:23 e-Cigarette/Vaping Use Never Used 03/31/24 15:23 Thrive Assessment: Date of Thrive Assessment Date Thrive assessed 11/16/23 03/31/24 15:23 Assessment and Plan Assessment & Plan (1) Paronychia of second toe of left foot: Code(s): L03.032 - Cellulitis of left toe Plan: continue with present antibiotic and elevated foot when sitting Coding Level of Care Code Est Pt Level 3 (43241) Diagnoses Paronychia of second toe of left foot L03.032
== END 2024-03-31 15:54 | disposition home or self-care (01) ==
PROVIDERS: PCP Internal Medicine; Visit Provider Internal Medicine
DX: L03.032 Cellulitis of left toe (principal)
CPT/HCPCS: 99213

== ENCOUNTER 2024-11-17 13:11 | Outpatient (AMB) | payer OTHER, SELFPAY ==
--- NOTE | 2024-11-17 13:18 | MHC.PC.OV ---
Vital Signs 11/17/24 13:19 Height 5 ft 6 in Weight 226 lb 8 oz BMI 36.6 BP 130/70 Blood Pressure Location Lt brachial Position Sitting Pulse 83 Pulse Source Pulse Oximeter Temp 97.3 F Temp Source Skin Pulse Oximetry (%) 97 Oxygen Delivery Method Room Air Intake Visit Reasons: PE Intake Note: Patient is here today for a physical. Drill Press Operator Helper Required: No Paraprofessional Aide: Present Accompanied by: staff Allergies amoxicillin [AMOXICILLIN] Allergy (Unknown, Verified 11/17/24 13:19) Unknown codeine [CODEINE] Allergy (Unknown, Verified 11/17/24 13:19) Unknown lorazepam [From ATIVAN] Allergy (Unknown, Verified 11/17/24 13:19) Unknown Medication List - Last Reconciled 11/17/24 by Charles Castaneda MD acetaminophen 500 mg PO Q6H PRN bacitracin 1 appl topical Q8H cetirizine (Zyrtec) 10 mg PO DAILY PRN diazepam 30 mg PO BEDTIME PRN pjnvmvkxseh-AjSs-ids A-D-aloe 1-10 % (A and D Diaper Rash Cream) topically daily PRN; apply after bathing and BMs. guanfacine 2 mg PO BEDTIME lactase (Lactaid) 3,000 units PO BID PRN lamotrigine 200 mg PO BID lamotrigine 50 mg PO BID loperamide 2 mg PO BID PRN melatonin 5 mg PO .QHS meloxicam 15 mg PO DAILY PRN miconazole nitrate 2% (Zeasorb AF) 1 appl topical BID risperidone 2 mg PO BID topiramate (Topamax) 200 mg PO BID Tobacco use date assessed: 11/17/24 Dental Screening Dental Screen Date: 11/17/24 Did you have a dental visit in the last 12 months?: Yes Did you have a dental problem in the last 6 months where you did not have access to dental care?: No Was dental information given to patient?: Patient has dentist HPI PE HPI Details The patient is a 34-year-old male presenting for a routine physical examination. He reports ongoing symptoms of heartburn that are mild and currently not requiring medication. He recognizes specific dietary triggers such as spicy foods and certain beverages. The heartburn is better managed by avoiding these triggers. He also reports seasonal allergic rhinitis, particularly noticeable during the spring and summer when his throat becomes sore, likely due to pollen. This has been an issue for some time and is managed with Zyrtec. The patient reports a history of allergies to codeine, lorazepam, and Amoxicillin No new allergies or reactions have occurred since the last visit. - Emphasized the importance of flu vaccinations during the current flu season. - Discussed the risks associated with COVID-19, RSV, and norovirus and advised caution. - Encouraged hand hygiene to prevent the spread of infections. - Suggested routine blood work since the last was done in 2021, including fasting blood sugar levels. - Denies alcohol and cigarette use. - Reports being physically active and maintaining activity throughout the day. - Moderates fluid intake at night due to waking up for urination. - Gastrointestinal: Reports heartburn, denies nausea, vomiting, or swallowing difficulties. - Respiratory: Denies waking up short of breath or having chest pain. - Eye: Denies vision problems, wears glasses primarily for playing games and watching TV. - Ears/Nose/Throat: Reports stuffiness in the morning, denies recent sneezing. - Urinary: Reports waking up once at night to urinate, denies any other urinary issues. - Neurological: Denies dizziness or fainting. [facility] Medical History (Updated 11/17/24 @ 13:46 by Charles Castaneda MD) Paronychia of second toe of left foot Generalized anxiety disorder Seizures Arthralgia Anal pain Annual physical exam Cognitive impairment Mood disorder Seizure Meningitis CVA (cerebral vascular accident) Surgical History History of surgery on lower extremity History of surgery on arm History of ankle surgery Family History Maternal Grandfather Myocardial infarct Social History Housing: Assisted Living Facility Alcohol intake: never Patient Tobacco Use Status: Never used Tobacco e-Cigarette/Vaping Use: Never Used Second Hand Smoke Exposure: No service: No Current occupational status: unemployed Cognitive needs: Yes Hearing needs: No Vision needs: No Questionnaire PHQ-9 Over the last 2 weeks, how often have you been bothered by any of the following problems? 1. Little interest or pleasure in doing things: several days 2. Feeling down, depressed, or hopeless: several days 3. Trouble falling or staying asleep, or sleeping too much: several days 4. Feeling tired or having little energy: several days 5. Poor appetite or overeating: more than half the days 6. Feeling bad about yourself - or that you are a failure or have let yourself or your family down: several days 7. Trouble concentrating on things, such as reading the newspaper or watching television: more than half the days 8. Moving or speaking so slowly that other people could have noticed. Or the opposite - being so fidgety or restless that you have been moving around a lot more than usual: several days 9. Thoughts that you would be better off or of hurting yourself in some way: not at all Total score: 10 Depression Screening Interpretation: Positive Depression Screening Done: Yes Source: Developed by Drs. Brody Sarabia, Marion Richardson, Eric Peraza and colleagues, with an educational kath from [employer]. Thrive Questionnaire Date Thrive assessed: 11/17/24 I am a: Patient What is your living situation today?: I have a steady place to live Within the past 12 months, did the food you bought not last and you didn't have the money to get more?: Never true Within the past 12 months, did you worry whether your food would run out before you got money to buy more?: Never true Do you have trouble paying for medicines?: No Do you have trouble getting transportation to medical appointments?: No Do you have trouble paying your heating and electricity bill?: No Do you have trouble taking care of your child, family member or friend?: No Do you have trouble with day-to-day activities such as bathing, preparing meals, shopping, managing finances, etc.?: No Are you currently unemployed and looking for a job?: No Are you interested in more education?: No Please select the resources that you would like help with: None Currently or been in a relationship where the following occur: I choose not to answer THRIVE Score: 0 AUDIT C Alcohol Use Questionnaire (AUDIT-C) 1. How often do you have a drink containing alcohol?: Never Total Score: 0 ROLAND-7 AMB Questionnaire ROLAND-7 Date ROLAND - 7 assessed: 11/17/24 Feeling nervous, anxious, or on edge: 1 = Several days Not being able to stop or control worryin = Several days Worrying too much about different things: 1 = Several days Trouble relaxin = Not at all Being so restless that it is hard to sit still: 0 = Not at all Becoming easily annoyed or irritable: 1 = Several days Feeling afraid as if something awful might happen: 1 = Several days Total ROLAND-7 score (0-4 normal; 5-9 mild; 10-14 moderate; 15-21 severe): 5 Source: Developed by Drs. Brody Sarabia, Marion Richardson, Eric Peraza and colleagues, with an educational kath from [employer]. Review of Systems Const Denies poor appetite and Denies weakness Eyes Denies no additional complaints ENT Reports Normal hearing present, Denies dizziness, Denies nasal congestion, Denies tinnitus and Denies sore throat Card Denies chest pain, Denies syncope, Denies rapid heart rate and Denies dyspnea Resp Denies cough and Denies dyspnea GI Denies change in stool character, Reports constipation, Denies diarrhea, Denies nausea and Denies vomiting Denies dysuria and Denies urinary frequency Neuro Reports Normal hearing present, Denies confusion, Denies dizziness, Denies syncope and Denies weakness Psych Denies confusion Physical exam (Primary Care) Vital Signs: Last Vital Signs Temp 97.3 F 11/17/24 13:19 Pulse 83 11/17/24 13:19 BP 130/70 11/17/24 13:19 Pulse Ox 97 11/17/24 13:19 Oxygen Delivery Method Room Air 11/17/24 13:19 Care Plan Goal for BP management: R arm weakness, cannot shrug and cannot dorsiflex, L side normal BMI result Body Mass Index 36.6 Tobacco/Smoking Status: Tobacco use Status Tobacco use date assessed 11/17/24 11/17/24 13:25 Patient Tobacco Use Status Never used Tobacco 11/17/24 13:25 e-Cigarette/Vaping Use Never Used 11/17/24 13:25 PHQ-9: PHQ-9 Score PHQ-9: Total score 10 11/17/24 14:57 Depression Screening Interpretation: Positive Thrive Assessment: Date of Thrive Assessment Date Thrive assessed 11/17/24 11/17/24 13:25 Currently or been in a relationship where the following occur: I choose not to answer Const General: No confusion Orientation/consciousness: No confusion HENMT Head: Yes normocephalic Ears: external ears normal and TM's normal bilaterally Face and sinus: Yes normal facial exam Mouth: moist mucous membranes Throat: Yes tonsils normal Eyes Conjunctivae: conjunctivae normal Pupils: Equal, round and reactive pupils present and Pupil accommodation reflex normal Direct Ophthalmoscopy: normal light reflex Neck Neck: No lymphadenopathy Thyroid: Thyroid normal Chest Chest palpation & inspection: normal inspection of the chest Resp Effort & Inspection: normal respiratory effort and no audible wheezes Auscultation: clear to auscultation bilaterally, no crackles, no wheezes and lung sounds not diminished Cardio Rate: regular rate Rhythm: regular rhythm Peripheral pulses: radial pulses present and dorsalis pedis present GI Palpation (GI): no masses Auscultation: normal bowel sounds and normoactive bowel sounds Rectal Exam - Male: Yes deferred Skin General skin exam: no rashes or lesions noted Rashes: no rashes Neuro General: No confusion Cranial nerves: Yes Equal, round and reactive pupils present and Yes Normal hearing present Cognition (Neuro): normal cognition Gait exam (Neuro): Normal gait present Motor exam (neuro): 5/5 motor strength present throughout Deep tendon reflexes (DTR's): Right brachioradialis reflex intensity grade: 2+, Left brachioradialis reflex intensity grade: 2+, Right patellar reflex intensity grade: 2+ and Left patellar reflex intensity grade: 2+ Extrem General: No edema Office Procedures Flu Questionnaire Does the patient have a severe egg allergy?: No Does the patient have severe life threatening allergies?: No Does the patient have a fever or illness today?: No Has the patient ever had Guillain-Banks Syndrome?: No Has the patient ever had any past reaction to a flu shot?: No Immunizations Fluarix Triv [id number] (PF) 45 mcg (15 mcg x 3)/0.5 mL IM syringe Performing Provider: Charles Castaneda MD Performing [facility] [place] [facility] Administered by: RENÉ Blankenship on 11/17/24 14:58 Dose Route Admin Location Dispensed Lot Number Expiration Date [facility] Atomic Spectroscopist 0.5 mL IM Left Deltoid 0.5 mL [id number] 04/16/25 [id number] [employer] VIS Given Date VIS Provided VIS Publication Date 11/17/24 Single Vaccine 21 Eligibility Eligibility Date Funding Source Not [facility] Eligible 11/17/24 Private Coding Level of Care Code Est Pt Prev Care 18-39y([id number]) Diagnoses Annual physical exam Z00.00 Obesity (BMI 30-39.9) E66.9 Bipolar 1 disorder F31.9 GERD (gastroesophageal reflux disease) K21.9 Assessment & Plan Assessment & Plan (1) Annual physical exam: Code(s): Z00.00 - Encounter for general adult medical examination without abnormal findings Category: Medical (2) Obesity (BMI 30-39.9): Code(s): E66.9 - Obesity, unspecified Category: Medical (3) Bipolar 1 disorder: Comment: Dr. Morrow Code(s): F31.9 - Bipolar disorder, unspecified Category: Medical (4) GERD (gastroesophageal reflux disease): Code(s): K21.9 - Gastro-esophageal reflux disease without esophagitis Category: Medical Plan - Continue avoiding triggers for heartburn, and maintain dietary restrictions as discussed. - Renew Zyrtec for management of seasonal allergies. - Perform routine laboratory tests including fasting blood work to update health records. - Administer flu shot today as per current seasonal recommendations. During the visit, I emphasized the importance of receiving a flu shot given the current flu season's intensity. I reminded the patient about the potential exposure to COVID-19 and RSV and the preventative measures required. In terms of heartburn management, I advised dietary avoidance of trigger foods and shared recent findings on artificial sweeteners' potential adverse effects. We discussed performing routine blood work to assess overall health status, including checking fasting glucose levels given the extended period since last measurements. I asked for consent for these proposed interventions, which were agreed upon by the patient. Follow-up regarding these health maintenance issues was scheduled for six months, with prompt attention to any emergent issues as needed. - Receive the flu shot today for influenza protection. - Avoid foods and drinks that trigger heartburn, including spicy and caffeinated products. - Continue taking Zyrtec for allergy control. - Practice regular hand hygiene to mitigate infection risks. - Fast for at least eight hours before coming for the scheduled lab work. - Monitor any new symptoms and contact clinic if any arise or worsen. Orders: Orders Complete Blood Count Auto Diff Today E66.9 - Obesity, unspecified Comprehensive Met. Panel Today E66.9 - Obesity, unspecified Thyroid Stimulating Hormone Today E66.9 - Obesity, unspecified Free T4 (Free Thyroxine) Today E66.9 - Obesity, unspecified Lipid Panel Today E66.9 - Obesity, unspecified, E78.00 - Pure hypercholesterolemia, unspecified Vitamin B12 and Folate Today E66.9 - Obesity, unspecified Hemoglobin A1c Today E66.9 - Obesity, unspecified Influenza [id number] Immunization Today Z23 - Encounter for immunization
[2024-11-17 13:19] VITALS: BP 130/70; PULSE 83; TEMP 36.3; O2SAT 97; BMI 36.6
--- OUTSIDE RECORDS SUMMARY | 2024-11-17 13:27 | XMS_ITS | Encounter Summary ---
Author Organization [facility] Address [address] [place] [phone] Phone Care Team Providers Care Aircraft Engine Dismantler Name Role Phone Олег Devine MD Primary Care Provider [phone] Encounter Details Date Type Department Care Team (Late st Contact Info) Description 12/31/2009 Documentation [facility] [place] Family Medicine [address] [place], [place] [id number] Family Medicine, Physician [address] [place] [address] Social History Tobacco Use Types Packs/Day Years Used Date Smoking Tobacco: Never Assessed Sex and Gender Information Value Date Recorded Sex Assigned at Not on file Legal Sex Male 4:46 PM EDT Gender Identity Not on file Sexual Orientation Not on file documented as of this encounter Plan of Treatment Not on file documented as of this encounter Visit Diagnoses Not on filedocumented in this encounter Care Teams Aircraft Engine Dismantler Relationship Specialty Start Date End Date Олег Devine MD [address] [place] [address] [place] [address] PCP - General 05/28/17 04/08/23 documented as of this encounter
--- OUTSIDE RECORDS SUMMARY | 2024-11-17 13:27 | XMS_ITS | Encounter Summary ---
Author Organization [facility] Address [address] [place] [address] Phone Care Team Providers Care Functional Consultant Name Role Phone Олег Devine MD Primary Care Provider [phone] Encounter Details Date Type Department Care Team (Late st Contact Info) Description 02/24/2010 Documentation [facility] [place] Family Medicine [address] [place], [place] [phone] Family Medicine, Physician [address] [place], [place] [address] Social History Tobacco Use Types Packs/Day Years [...] on filedocumented in this encounter Care Teams Functional Consultant Relationship Specialty Start Date End Date Олег Devine MD [address] [place] [address] [place] [address] PCP - General 05/28/17 04/08/23 documented as of this encounter
--- OUTSIDE RECORDS SUMMARY | 2024-11-17 13:27 | XMS_ITS | Clinical Summary ---
Author Organization [facility] Address [address] [place] [phone] Phone Care Team Providers Care Sleeve Presser Operator Name Role Phone Unavailable Primary Care Provider Unavailabl e Immunizations Name Administration Dates Next Due DTaP 5 10/03/1999, 3,03/14/1992,01/11,1991 HPV, Quadrivalent 05/03/2013,04/19/2012 Hep B, ped/adol 06/14/2000,12/05/1999,10/03/1999 Hib (PRP-T) 08/28/1993, 2,01/12/1992,11/16 IPV 10/03/1999, 3,01/12/1992,11/16 Influenza, injectable, trivalent 08/02/2009 MMR 12/09/1999,08/28/1993 Meningococcal Conj (Menactra) MCV4P 04/03/2008 Td (adult) (MBL), 2 Lf tetan us toxoid, PF, adsorbed 05/21/2004 Tdap 04/03/2008 Family History Relation Name Status Comments Brother Alive Brother: ADD/AD HD Father Alive Father: Migrain es Mother Alive Mother: depress ion/ hypothyroid/ endometriosis/ asthma Other Family history of Obesity, Family history of Hyperlipidemia, No family history of Sudden /IL under age 55, No family history of Dental caries, Family history of Seizure disorder, No family history of Thrombophilia, Family history of Thyroid disease, Family history of CVA (Stroke), Family history of Fibromyalgia, Family history of Asthma Social History Tobacco Use Types Packs/Day Years Used Date Smoking Tobacco: Never Comments:Never smoker Sex and Gender Information Value Date Recorded Sex Assigned at Not on file Legal Sex Male 4:46 PM EDT Gender Identity Not on file Sexual Orientation Not on file Last Filed Vital Signs Vital Sign Reading Time Taken Comments Blood Pressure 112/74 05/03/2013 12:00 AM EDT Pulse 68 04/19/2012 12:00 AM EDT Temperature - - Respiratory Rate - - Oxygen Saturation - - Inhaled Oxygen Concentration - - Weight 98.4 kg (217 lb) 05/03/2013 12:00 AM EDT Height 167.6 cm (5' 6 ) 05/03/2013 12:00 AM EDT Body Mass Index 35.02 05/03/2013 12:00 AM EDT Plan of Treatment Health Maintenance Due Date Last Done Comments Varicella Vaccines (1 of 2 - 13+ 2-dose series) 2004 HPV Vaccines (3 - Male 3-dose series) 07/26/2013 05/03/2013, 04/19/2012 DTaP,Tdap,and Td Vaccines (7 - Td or Tdap) 04/03/2018 04/03/2008, 05/21/2004, 10/03/1999, Additional history exists Influenza Vaccines (#1) 2024 08/02/2009 COVID-19 Vaccine ( season) 2024 HIB Vaccines Completed 08/28/1993, 02/16, 01/12/1992, Additional history exists IPV Vaccines Completed 10/03/1999, 08/18, 01/12/1992, Additional history exists MMR Vaccines Completed 12/09/1999, 08/28/1993 Hepatitis B Vaccines Completed 06/14/2000, 12/05/1999, 10/03/1999 Meningococcal Vaccine Completed 04/03/2008 Hepatitis A Vaccines Aged Out No long er eligible based on patient's age to complete this topic Men B Vaccine Aged Out No longer elig ible based on patient's age to complete this topic Pneumococcal Vaccine Aged Out No long er eligible based on patient's age to complete this topic
--- OUTSIDE RECORDS SUMMARY | 2024-11-17 13:27 | XMS_ITS | Encounter Summary ---
Author Organization [facility] Address [address] [place] [address] Phone Care Team Providers Care Move Coordinator Name Role Phone Олег Devine MD Primary Care Provider [phone] Encounter Details Date Type Department Care Team (Late st Contact Info) Description 12/26/2009 Documentation [facility] [place] Family Medicine [address] [place], [place] [phone] Family Medicine, Physician [address] [place], [place] [phone] Social History Tobacco Use Types Packs/Day Years [...] on filedocumented in this encounter Care Teams Move Coordinator Relationship Specialty Start Date End Date Олег Devine MD [address] [place] [address] [place] [address] PCP - General 05/28/17 04/08/23 documented as of this encounter
--- OUTSIDE RECORDS SUMMARY | 2024-11-17 13:27 | XMS_ITS | Encounter Summary ---
Author Organization [facility] Address [address] [place] [address] Phone Care Team Providers Care Site Foreman Name Role Phone Олег Devine MD Primary Care Provider [phone] Encounter Details Date Type Department Care Team (Late st Contact Info) Description 04/22/2010 Documentation [facility] [place] [address] [place], [place] [phone] Family Medicine, Physician [address] [place], [place] [phone] Social History Tobacco Use Types Packs/Day Years [...] on filedocumented in this encounter Care Teams Site Foreman Relationship Specialty Start Date End Date Олег Devine MD [address] [place] [address] [place] [address] PCP - General 05/28/17 04/08/23 documented as of this encounter
--- OUTSIDE RECORDS SUMMARY | 2024-11-17 13:27 | XMS_ITS | Encounter Summary ---
Author Organization [facility] Address [address] [place] [address] Phone Care Team Providers Care Motorcycle Police Officer Name Role Phone Олег Devine MD Primary Care Provider [phone] Encounter Details Date Type Department Care Team (Late st Contact Info) Description 05/13/2010 Documentation [facility] [place] Family Medicine [address] [place], [place] [phone] Family Medicine, Physician [address] [place], [place] [address] Social History Tobacco Use Types Packs/Day Years [...] on filedocumented in this encounter Care Teams Motorcycle Police Officer Relationship Specialty Start Date End Date Олег Devine MD [address] [place] [address] [place] [address] PCP - General 05/28/17 04/08/23 documented as of this encounter
--- OUTSIDE RECORDS SUMMARY | 2024-11-17 13:27 | XMS_ITS | Encounter Summary ---
Author Organization [facility] Address [address] [place] [phone] Phone Care Team Providers Care Nuclear Physics Professor Name Role Phone Олег Devine MD Primary Care Provider [phone] Encounter Details Date Type Department Care Team (Late st Contact Info) Description 06/03/2017 Conversion Encounter [facility] [address] [place] [address] Social History Tobacco Use Types Packs/Day Years [...] on filedocumented in this encounter Care Teams Nuclear Physics Professor Relationship Specialty Start Date End Date Олег Devine MD [address] [place] [address] PCP - General 05/28/17 04/08/23 documented as of this encounter
== END 2024-11-17 14:10 | disposition home or self-care (01) ==
PROVIDERS: PCP Internal Medicine; Visit Provider Internal Medicine
DX: Z00.00 Encounter for general adult medical examination without abnormal findings (principal); E66.9 Obesity, unspecified; Z68.36 Body mass index [BMI] 36.0-36.9, adult; F31.9 Bipolar disorder, unspecified; K21.9 Gastro-esophageal reflux disease without esophagitis; Z23 Encounter for immunization

== ENCOUNTER → 2024-11-17 13:11 | Outpatient (BNVA) | payer OTHER, SELFPAY | PROVIDERS: PCP Internal Medicine; Visit Provider Internal Medicine | DX: Z00.00 Encounter for general adult medical examination without abnormal findings (principal); Z23 Encounter for immunization; E66.9 Obesity, unspecified; Z68.36 Body mass index [BMI] 36.0-36.9, adult; F41.3 Other mixed anxiety disorders; K21.9 Gastro-esophageal reflux disease without esophagitis; Z71.3 Dietary counseling and surveillance | CPT/HCPCS: 90471; 90656; 99395 ==

== ENCOUNTER 2024-11-20 08:56 | Outpatient (REF) | payer OTHER, SELFPAY ==
[2024-11-20 09:16] LABS: MANUAL DIFF FLAG NO
[2024-11-20 09:41] LABS: Basophils Percent Auto 0.3 % (0-2); Eosinophils Absolute Auto 0.1 X10*3/uL (0.0-0.4); Eosinophils Percent Auto 2.1 % (0-4); Hematocrit 43.6 % (42.0-52.0); Hemoglobin 14.8 g/dl (14.0-18.0); Imm Gran Abs Auto 0.04 X10*3/uL (0.00-0.03); Imm Gran Pct Auto 0.6 % (0.0-0.4); Lymphocytes Absolute Auto 1.3 X10*3/uL (1.2-4.9); Lymphocytes Percent Auto 19.1 % (20-40); Mean Corpuscular HGB Conc 33.9 g/dl (31.0-36.0); Mean Corpuscular Hemoglobin 29.4 pg (27.0-33.0); Mean Corpuscular Volume 86.5 fL (80.0-98.0); Mean Platelet Volume 9.9 fL (9.4-12.4); Monocytes Absolute Auto 0.6 X10*3/uL (0.1-1.2); Monocytes Percent Auto 8.4 % (2-11); Neutrophils Absolute Auto 4.8 x10*3/uL (2.0-8.3); Neutrophils Percent Auto 69.5 % (45-73); Platelet Count 236 X10*3/uL (160-400); Red Blood Count 5.04 X10*6/uL (4.60-5.80); Red Cell Distribution Width 12.5 % (11.0-16.0); White Blood Count 6.8 X10*3/uL (4.8-10.8)
[2024-11-20 09:47] LABS: Estimated Average Glucose 100 mg/dL; Hemoglobin A1C 125.4105 umol/L; Hemoglobin A1c % 5.1 % (<6.0); Total Hemoglobin (HGBA1C) 3904.4876 umol/L
[2024-11-20 11:02] LABS: Alanine Aminotransferase 22 U/L (0-40); Albumin Level 4.2 g/dL (3.5-5.0); Alkaline Phosphatase 71 U/L (39-117); Anion Gap 10 (12-20); Aspartate Amino Transferase 21 U/L (5-37); Bilirubin Total 0.4 mg/dL (0.0-1.0); Blood Urea Nitrogen 6 mg/dL (9-16); Carbon Dioxide 21 mmol/L (22-29); Chloride 115 mmol/L (96-108); Cholesterol 135 mg/dL (<200); Estimated Glomerular Filt Rate > 60; Free T4 (Free Thyroxine) 0.89 ng/dL (0.71-1.85); Glucose Random 96 mg/dL (60-115); HDL Cholesterol 36 mg/dL (>40); LDL Cholesterol Calculated 86 mg/dL (<100); Potassium 3.8 mmol/L (3.3-5.1); Sodium 142 mmol/L (135-145); Thyroid Stimulating Hormone 1.33 uIU/mL (0.32-4.0); Total Protein 7.3 g/dL (6.5-8.0); Triglycerides 67 mg/dL (<150)
[2024-11-20 11:27] LABS: Folate 7.4 ng/mL (> or = 4.0); Vitamin B12 525 pg/mL (200-900)
== END 2024-11-20 08:57 | disposition home or self-care (01) ==
LOC: HO.LAB 08:56
PROVIDERS: PCP Internal Medicine; Visit Provider Internal Medicine
DX: E66.9 Obesity, unspecified (principal); E78.00 Pure hypercholesterolemia, unspecified
CPT/HCPCS: 36415; 80053; 80061; 82607; 82746; 83036; 84439; 84443; 85025

== ENCOUNTER 2025-03-29 10:53 | Outpatient (AMB) | payer OTHER, SELFPAY ==
--- NOTE | 2025-03-29 10:55 | A.OFFPC_ITS ---
Vital Signs 03/29/25 10:57 Height 5 ft 6 in Weight 220 lb BMI 35.5 BP 119/70 Blood Pressure Location Lt brachial Position Sitting Respiration 20 Pulse 98 Pulse Source Pulse Oximeter Temp 97.3 F Temp Source Skin Pulse Oximetry (%) 97 Oxygen Delivery Method Room Air Intake Visit Reasons: 6 mth f/u Sox Analyst Required: No Radiologic Technologist Chief: Present Accompanied by: Other Relationship Allergies amoxicillin [AMOXICILLIN] Allergy (Unknown, Verified 03/29/25 11:00) Unknown codeine [CODEINE] Allergy (Unknown, Verified 03/29/25 11:00) Unknown lorazepam [From ATIVAN] Allergy (Unknown, Verified 03/29/25 11:00) Unknown Tobacco use date assessed: 03/29/25 Dental Screening Dental Screen Date: 03/29/25 [facility] Medical History (Updated 11/17/24 @ 13:46 by Charles Castaneda MD) Paronychia of second toe of left foot Generalized anxiety disorder Seizures Arthralgia Anal pain Annual physical exam Cognitive impairment Mood disorder Seizure Meningitis CVA (cerebral vascular accident) Surgical History History of surgery on lower extremity History of surgery on arm History of ankle surgery Family History Maternal Grandfather Myocardial infarct Social History Housing: Assisted Living Facility Alcohol intake: never Patient Tobacco Use Status: Never used Tobacco e-Cigarette/Vaping Use: Never Used Second Hand Smoke Exposure: No service: No Current occupational status: unemployed Cognitive needs: Yes Hearing needs: No Vision needs: No Questionnaire PHQ-9 Over the last 2 weeks, how often have you been bothered by any of the following problems? 1. Little interest or pleasure in doing things: several days 2. Feeling down, depressed, or hopeless: several days 3. Trouble falling or staying asleep, or sleeping too much: nearly every day 4. Feeling tired or having little energy: several days 5. Poor appetite or overeating: several days 6. Feeling bad about yourself - or that you are a failure or have let yourself or your family down: several days 7. Trouble concentrating on things, such as reading the newspaper or watching television: not at all 8. Moving or speaking so slowly that other people could have noticed. Or the opposite - being so fidgety or restless that you have been moving around a lot more than usual: not at all 9. Thoughts that you would be better off or of hurting yourself in some way: not at all Total score: 8 Depression Screening Interpretation: Positive Depression Screening Done: Yes Source: Developed by Drs. Brody Sarabia, Marion Richardson, Eric Peraza and colleagues, with an educational kath from [employer]. Thrive Questionnaire Date Thrive assessed: 11/17/24 I am a: Patient What is your living situation today?: I have a steady place to live Within the past 12 months, did the food you bought not last and you didn't have the money to get more?: Never true Within the past 12 months, did you worry whether your food would run out before you got money to buy more?: Never true Do you have trouble paying for medicines?: No Do you have trouble getting transportation to medical appointments?: No Do you have trouble paying your heating and electricity bill?: No Do you have trouble taking care of your child, family member or friend?: No Do you have trouble with day-to-day activities such as bathing, preparing meals, shopping, managing finances, etc.?: No Are you currently unemployed and looking for a job?: No Are you interested in more education?: No Please select the resources that you would like help with: None Currently or been in a relationship where the following occur: I choose not to answer THRIVE Score: 0 AUDIT C Alcohol Use Questionnaire (AUDIT-C) 1. How often do you have a drink containing alcohol?: Never 3. How often do you have six or more drinks on one occasion?: Never Total Score: 0 Score Reviewed/Action Taken: Yes ROLAND-7 AMB Questionnaire ROLAND-7 Date ROLAND - 7 assessed: 03/29/25 Feeling nervous, anxious, or on edge: 1 = Several days Not being able to stop or control worryin = More than half the days Worrying too much about different things: 2 = More than half the days Trouble relaxin = More than half the days Being so restless that it is hard to sit still: 2 = More than half the days Becoming easily annoyed or irritable: 0 = Not at all Feeling afraid as if something awful might happen: 1 = Several days Total ROLAND-7 score (0-4 normal; 5-9 mild; 10-14 moderate; 15-21 severe): 10 Source: Developed by Drs. Brody Sarabia, Marion Richardson, Eric Peraza and colleagues, with an educational kath from [employer]. Physical exam (Primary Care) Vital Signs: Last Vital Signs Temp 97.3 F 03/29/25 10:57 Pulse 98 03/29/25 10:57 Resp 20 03/29/25 10:57 BP 119/70 03/29/25 10:57 Pulse Ox 97 03/29/25 10:57 Oxygen Delivery Method Room Air 03/29/25 10:57 BMI result Body Mass Index 35.5 Tobacco/Smoking Status: Tobacco use Status Tobacco use date assessed 03/29/25 03/29/25 11:00 Patient Tobacco Use Status Never used Tobacco 03/29/25 10:55 e-Cigarette/Vaping Use Never Used 03/29/25 10:55 PHQ-9: PHQ-9 Score PHQ-9: Total score 8 03/29/25 11:18 Depression Screening Interpretation: Positive Thrive Assessment: Date of Thrive Assessment Date Thrive assessed 11/17/24 03/29/25 10:55 Currently or been in a relationship where the following occur: I choose not to answer Const General: alert; No acute distress Eyes Conjunctivae: conjunctivae normal Resp Auscultation: clear to auscultation bilaterally Cardio Rate: regular rate Rhythm: regular rhythm GI Inspection: Yes normal to inspection Extrem General: Yes normal to inspection and No edema Coding Level of Care Code Est Pt Level 4 (07702) Complex EM visit Add On G2211 Diagnoses Obesity (BMI 30-39.9) E66.9 Seizures R56.9 Bipolar 1 disorder F31.9 GERD (gastroesophageal reflux disease) K21.9 Assessment & Plan Assessment & Plan (1) Obesity (BMI 30-39.9): Code(s): E66.9 - Obesity, unspecified Category: Medical Plan: Diet and exercise (2) Seizures: Comment: Dr. Alvarado. last seizure 2011, GRand MAl Code(s): R56.9 - Unspecified convulsions Category: Medical Plan: Patient on diazepam 30 mg at bedtime with lamotrigine 250 mg twice a day and Topamax 200 mg twice a day (3) Bipolar 1 disorder: Comment: Dr. Morrow Code(s): F31.9 - Bipolar disorder, unspecified Category: Medical Plan: Continue with counseling and therapy on risperidone guanfacine (4) GERD (gastroesophageal reflux disease): Code(s): K21.9 - Gastro-esophageal reflux disease without esophagitis Category: Medical Plan: Avoid the foods that causes that usually spicy foods, tomato products, juices, coffee, soda and foods that your sensitive to. After eating do not lie down, allow 3-4 hours before in lie down. And keep the head of bed above 30 degrees to avoid the acid from going up. Plan History of Present Illness The patient is a 34-year-old male presenting for a follow-up visit after a previous consultation in October. The patient has a history of obesity and has noted a weight loss over the past six months. He attributes this to dietary changes, including reduced intake of soda and Gatorade, and increased physical activity such as walking around the h ouse. The patient has a history of seizure disorder and bipolar disorder, managed with medications including diazepam, lamotrigine, topiramate, risperidone, and guanfacine. He reports no recent seizures and follows up with Dr. Mohr for ongoing management. The patient experienced a cerebrovascular accident at , resulting in right hemiparesis. He has been actively working on improving mobility in his right hand and foot through exercises. Recent blood work indicates normal blood count, electrolytes, renal function, blood sugar, liver function, cholesterol, B12, folic acid, and thyroid levels. Urinalysis was negative, and blood pressure was reported as good. Health Maintenance - Dietary changes: Reduced intake of soda and Gatorade - Increased physical activity: Walking around the house Social History - Exercise: Patient reports walking around the house as a form of physical activity - Nutrition: Reduced intake of soda and Gatorade as part of dietary changes Review of Systems - Neurological: Denies recent seizures - Genitourinary: Reports nocturia, waking up once or twice at night to urinate Physical Exam - Neurological: Right hemiparesis noted - Musculoskeletal: Limited movement in right foot, patient able to lift foot with effort - General: Patient appears to have lost weight since last visit Results - Labs: Normal blood count, electrolytes, renal function, blood sugar, liver function, cholesterol, B12, folic acid, thyroid levels - Urinalysis: Negative Plan The patient will continue with current medications for seizure disorder and bipolar disorder, including diazepam, lamotrigine, topiramate, risperidone, and guanfacine. Follow-up with Dr. Mohr for ongoing management of these conditions is advised. Dietary modifications, such as reducing soda and Gatorade intake, should be maintained to support weight management. Increased physical activity, including walking, is encouraged to further aid in weight loss and improve overall health. Regular monitoring of blood work is recommended to ensure continued normal levels of blood count, electrolytes, renal function, blood sugar, liver function, cholesterol, , folic acid, and thyroid levels. Patient was informed and verbally consented to the use of an ambient scribe for clinic note documentation during this visit. Discussion Notes I discussed with the patient the importance of continuing his current medication regimen for seizure disorder and bipolar disorder, emphasizing the need for regular follow-ups with Dr. Mohr. We reviewed his recent blood work, which showed normal results, and I advised maintaining dietary changes and physical activity to support his weight loss efforts. Patient Instructions - Continue taking prescribed medications as directed. - Follow up with Dr. Mohr for ongoing management of seizure disorder and bipolar disorder. - Maintain dietary changes, reducing soda and Gatorade intake. - Increase physical activity, such as walking, to aid in weight loss. - Monitor blood work regularly to ensure continued normal levels.
[2025-03-29 10:57] VITALS: BP 119/70; PULSE 98; RESP 20; TEMP 36.3; O2SAT 97; BMI 35.5
--- OUTSIDE RECORDS SUMMARY | 2025-03-29 12:51 | XMS_ITS | Clinical Summary ---
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
== END 2025-03-29 11:27 | disposition home or self-care (01) ==
LOC: HO.HMCH 10:54
PROVIDERS: PCP Internal Medicine; Visit Provider Internal Medicine
DX: R56.9 Unspecified convulsions (principal); F31.9 Bipolar disorder, unspecified; Z68.35 Body mass index [BMI] 35.0-35.9, adult; E66.9 Obesity, unspecified; K21.9 Gastro-esophageal reflux disease without esophagitis

== ENCOUNTER → 2025-03-29 10:53 | Outpatient (BNVA) | payer OTHER, SELFPAY | PROVIDERS: PCP Internal Medicine; Visit Provider Internal Medicine | DX: K21.9 Gastro-esophageal reflux disease without esophagitis (principal); E66.9 Obesity, unspecified; R56.9 Unspecified convulsions; F31.9 Bipolar disorder, unspecified | CPT/HCPCS: 99212 ==

== ENCOUNTER 2025-05-11 13:18 | Outpatient (AMB) | payer OTHER, SELFPAY ==
--- OUTSIDE RECORDS SUMMARY | 2025-05-11 13:19 | XMS_ITS | Clinical Summary ---
Author Organization [facility] Address [address] [address] Phone Care Team Providers Care Wheelchair Driver Name Role Phone Brigette Sow MD Primary Care Provider [phone] Allergies Active Allergy Reactions Criticality Noted Date Comments Amoxicillin 11/11/2017 Lorazepam 11/11/2017 Codeine 11/11/2017 Medications diazePAM (VALIUM) 2 MG tablet Take 30 mg by mouth nightly at bedtime. Active guanFACINE (TENEX) 1 MG tablet 1 tablet at bedtime Active lamoTRIgine (LAMICTAL) 200 MG tablet Take 200 mg by mouth 2 (two) times a day. Active risperiDONE (RISPERDAL) 2 MG tablet Take 2 mg by mouth 2 (two) times a day. Active topiramate (TOPAMAX) 200 MG tablet Take 200 mg by mouth 2 (two) times a day. Active loperamide (IMODIUM) 2 mg capsuleIndicatio ns:Diarrhea Take 1 capsule (2 mg total) by mouth as needed for diarrhea. 60 capsule 5 1 Active acetaminophen (TYLENOL) 500 mg capsuleIndicatio ns:Fever,Mild pain Take 1 capsule (500 mg total) by mouth every 6 (six) hours as needed for fever (temp or mild discomfort (headache/body aches)). 60 capsule 5 1 Active cetirizine (ZYRTEC) 10 MG tablet Take 10 mg by mouth as needed. Active lactase (LACTAID) 3,000 unit tablet Take 3,000 Units by mouth 2 (two) times a day as needed. Active LAMOTRIGINE ORAL Take 50 mg by mouth 2 (two) times a day. Active melatonin 5 mg Tab Take 5 mg by mouth nightly at bedtime. Active doxycycline hyclate (DORYX) 100 MG tablet Take 100 mg by mouth 2 (two) times a day. 3 Active meloxicam (MOBIC) 15 MG tabletIndication s:Chronic generalized pain TAKE 1 TABLET BY MOUTH DAILY WITH FOOD 30 tablet 3 Active Active Problems Problem Noted Date Diagnosed Date Encounter for monitoring NSAID therapy 3 Assessment & Plan (05/25/2023 2:10 PM EDT): Baseline labs prior to start of daily meloxicam Chronic generalized pain 12/11/2020 Assessment & Plan (05/25/2023 2:09 PM EDT): No historical or physical evidence concerning for underlying inflammatory arthritis; pain likely secondary to long-term sequelae of CVA with resultant right-sided hemiplegia. There is no current indication for rheumatology-specific w/u or ongoing rheumatology-specific mgmt. Trial meloxicam 15 mg daily for symptomatic benefit; this medication can be refilled by PCP in future if it is effective and tolerated. Referral for dedicated PT +/- physiatry evaluation deferred to patient's established neurologist given absent evidence concerning for rheumatologic disease; patient's mother amenable to discussion with Dr. Alvarado on upcoming f/u. Assessment & Plan (12/11/2020 3:00 PM EST): Timmy-I refilled his Tylenol-to be taken as directed. Diarrhea 12/11/2020 Assessment & Plan (12/11/2020 3:00 PM EST): Stable-I refilled his medication to be taken as directed. Medication refill 12/11/2020 Assessment & Plan (12/11/2020 3:00 PM EST): Medication refill today in the office. Encounter for routine laboratory testing 021 Assessment & Plan (12/11/2020 3:00 PM EST): Darion will be due for lab work prior to his next physical-3 months. Labs were ordered-he was advised to get them done fasting. Stroke 07/12/2018 Overview (07/12/2018): At , right ned Gastroesophageal reflux disease without esophagi tis 05/30/2018 Assessment & Plan (05/30/2018 2:35 PM EDT): Darion likely has episodic GERD like symptoms and he was advised to improve his diet and exercise regimen. He will try this prior to medication management. Routine medical exam 01/13/2018 Assessment & Plan (01/13/2018 5:36 PM EDT): Houston Pruitt is a 27 y.o. year old male presenting for his annual physical exam. I reviewed the adult health update form today and his snf paperwork in the office. he will go for his above lab work and I will update him with the results. he has a healthy diet and exercise regimen. he will follow up in a year for their annual physical exam. he understand and agrees. Agitation 08/31/2017 Bipolar disorder 08/31/2017 Assessment & Plan (11/22/2018 10:57 AM EST): Darion has bipolar disorder and he is taking his medication as directed. He is living at his snf at present. Assessment & Plan (08/04/2018 3:48 PM EDT): Darion has bipolar disorder and he is taking his medication as directed. Assessment & Plan (01/13/2018 5:36 PM EDT): Darion has bipolar disorder and he is taking his medication as directed. Obese 08/31/2017 Assessment & Plan (11/22/2018 10:57 AM EST): Darion is obese and he will be working on improving his diet and exercise regimen. He will be going for the above lab work. Assessment & Plan (08/04/2018 3:49 PM EDT): Darion is obese and he was advised to improve diet and exercise. Assessment & Plan (05/30/2018 2:36 PM EDT): Darion is obese and he was advised to try and get back in to see the body specialist. He will continue to work on diet and exercise. F/U as needed. Assessment & Plan (01/13/2018 10:58 AM EDT): Darion is obese and he was given a referral to nutrition today to help with his diet and exercise. Seizure 08/31/2017 Assessment & Plan (11/22/2018 10:58 AM EST): Darion has a H/O seizures and he is taking his medication as directed. Assessment & Plan (01/13/2018 5:37 PM EDT): Darion has a history of seizures and he is taking his medication as directed. Sleep disturbance 08/31/2017 Assessment & Plan (12/11/2020 2:59 PM EST): Darion presents with his snf staff member today to discuss sleep issues. The staff note that he is taking frequent naps throughout the day. I advised him not to do this and to push his sleep more at night to see if he gets continuously. Follow-up in 3 months for his annual physical and if this does not improve then I may start a medication. I filled out the snf paperwork today in the office. They will call if there is any other issues or concerns. 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 He is in a snf. Arminda lockhart 08/31/2017 Immunizations Immunization Administration Dates Next Due DTaP 10/03/1999, 3,03/14/1992,01/11,1991 Dtap, 5 Pertussis Antigens 10/03/1999,,03/14/1992,01/11,1991 HPV,quadrivalent 01/17/2015,05/03/2013, 2 Hepatitis B 06/14/2000,12/05/1999,10/03/1999 Hib, unspecified formulation 08/28/1993, 03/14/1992,01/12/1992,11/16 Hib,PRP-T 08/28/1993, 2,01/12/1992,11/16 IPV 10/03/1999, 3,01/12/1992,11/16 Influenza Trivalent w/ Preservative IM 9 MMR 12/09/1999,08/28/1993 Meningococcal MCV4P 04/03/2008 Td (adult),2 Lf Tetanus Toxo id, PF, Adsorbed 05/21/2004 Tdap 04/03/2008 Varicella 12/25/2013 Family History Medical History Relation Comments Heart attack Maternal Grandfather Relation Status Comments Maternal Grandfather Mother Alive Social History Tobacco Use Types Packs/Day Years Used Date Smoking Tobacco: Never Smokeless Tobacco: Never Tobacco Cessation:Counseling Given: Not Answered Alcohol Use Standard Drinks/Week Comments No 0 (1 standard drink = 0.6 oz pur e alcohol) Education Answer Date Recorded Are you interested in more education? Not on abdoul e 02/12/2023 Are you concerned about learning? Not on file 02/12/2023 No 02/12/2023 No 02/12/2023 Digital Access Answer Date Recorded No 03/15/2023 No 03/15/2023 Reliable internet access at home? Not on file 03/15/2023 Device with a working camera? 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 8 oz) 05/25/2023 12:50 PM EDT with shoes Height 170.2 cm (5' 7.01 ) 05/25/2023 1 2:50 PM EDT Body Mass Index 37.24 05/25/2023 12:50 PM EDT Plan of Treatment Health Maintenance Due Date Last Done Comments DEPRESSION SCREENING 2003 HEPATITIS C SCREENING 2009 HIV ONE-TIME SCREENING (18-65 YEARS) 2009 Adult Td,Tdap Booster 04/03/2018 04/03/2008, 004 LIPID PANEL 11/22/2019 11/22/2018, 12/18, 01/14/2017, Additional history exists CREATININE LEVEL 11/25/2023 05/25/2023, 02/2019, 01/14/2017 POTASSIUM LEVEL 11/25/2023 05/25/2023, 02/0 02/2019, 01/14/2017 COVID-19 VACCINE ( season) 2024 08/19/2021, 11/21/2020, 10/31/2020 HIB VACCINES Completed 08/28/1993, 08/18, 03/14/1992, Additional history exists MENINGOCOCCAL VACCINES (ACWY) Completed 04/03/2008 SMOKING STATUS SCREENING (Once After 26 Yrs) Completed 05/25/2023 HEPATITIS A VACCINES Aged Out No long er eligible based on patient's age to complete this topic MENINGOCOCCAL VACCINES (B) Aged Out N o longer eligible based on patient's age to complete this topic PNEUMOCOCCAL VACCINES (0-49 years) Aged Out No longer eligible based on patient's age to complete this topic Medical Devices Not on file Procedures Procedure Name Priority Date/Time Associated Diagnosis Comments COMPREHENSIVE METABOLIC PANEL Routine 05/25/2023 2:06 PM EDT Encounter for monitoring NSAID therapy LIPID PANEL Routine 11/22/2018 11:02 AM EST Routine medical exam from Last 3 Months or Most Recently Relevant to Health Maintenance Results * (ABNORMAL) Comprehensive metabolic panel (05/25/2023 2:06 PM EDT) SODIUM 141 133 - 146 mmol/L [facility] POTASSIUM 4.0 3.3 - 5.1 mmol/L [facility] CHLORIDE 109(H) 96 - 108 mmol/L [facility] CO2 22 21 - 35 mmol/L [facility] BUN 10 6 - 19 mg/dL [facility] CREATININE 0.80 0.5 - 1.5 mg/dL [facility] GLUCOSE 96 70 - 99 mg/dL [facility] ALBUMIN 4.4 3.9 - 4.8 g/dL [facility] TOTAL PROTEIN 7.2 6.5 - 8.0 g/dL [facility] CALCIUM 9.4 8.4 - 10.3 mg/dL [facility] ALKALINE PHOSPHATASE 82 39 - 117 U/L [facility] TOTAL BILIRUBIN <0.2 0.0 - 1.2 mg/dL [facility] AST 22 0 - 37 U/L [facility] ALT 23 0 - 40 U/L [facility] GLOBULIN 2.8 1 - 4.8 g/dL [facility] EGFR >120 >59 mL/min/1.7 3m2 [facility] Comment:Estimated glomerular filtration rate calculated using the CKD-EPI refit equation. ANION GAP 14 10 - 20 mmol/L [facility] Blood 05/25/2023 2:06 PM EDT 05/25/2023 2:12 PM EDT us Luba Trammell MD, MPH LAB BLOOD ORDERABLES Fin al Result [facility] [address] [place] [address] * Lipid panel (11/22/2018 11:02 AM EST) HDL 39 mg/dL [facility] Comment: Interpretation <40 mg/dL: Low HDL cholesterol (major risk factor for CHD) Greater than or equal to 60 mg/dL: High HDL cholesterol ( negative risk factor for CHD) HDL - cholesterol is affected by a number of factors, e.g. smoking, excerise, hormones, sex and age. CHOLESTEROL 149 0 - 240 mg/dL [facility] TRIGLYCERIDES 100 30 - 160 mg/dL [facility] LDL 90 50 - 129 mg/dL [facility] Comment: LDL levels in terms of risk for coronary heart disease: <100 mg/dL: Optimal 100-129 mg/dL: Near or above optimal 130-159 mg/dL: Borderline high 160-189 mg/dL: High >190 mg/dL: Very High CARDIAC RISK RATIO 3.8 3.4 - 5.0 [facility] Blood 11/22/2018 11:0 2 AM EST 11/22/2018 11:05 AM EST Noel Faulkner DO LAB BLOOD ORDERABLES Final Resul t Performing Organization Address City/State/[facility] Co de Phone Number [address] [phone] from Last 3 Months or Most Recently Relevant to Health Maintenance Insurance ACO ACO ACO ACO ACO ACO ACO ACO [facility] ACO Care Teams Wheelchair Driver Relationship Specialty Start Date End Date Brigette Sow MD [address] [facility] [place] [id number] PCP - General Internal Medicine 03/05/21 Additional Source Comments The information contained in this document represents components of the legal health record. It is not the complete legal health record.[facility]
--- OUTSIDE RECORDS SUMMARY | 2025-05-11 13:19 | XMS_ITS | Encounter Summary ---
Author Organization [facility] Address [address] [place] [phone] Phone Care Team Providers Care Unit Supervisor Name Role Phone Олег Devine MD Primary Care Provider [phone] Encounter Details Date Type Department Care Team (Late st Contact Info) Description 06/03/2017 Conversion Encounter [facility] [address] [place] [address] Social History Tobacco Use Types Packs/Day Years [...] on filedocumented in this encounter Care Teams Unit Supervisor Relationship Specialty Start Date End Date Олег Devine MD [address] [place] [address] PCP - General 05/28/17 04/08/23 documented as of this encounter
[2025-05-11 13:21] VITALS: BP 90/60; PULSE 106; TEMP 36.2; O2SAT 97; BMI 36.3
--- NOTE | 2025-05-11 13:21 | A.OFFPC_ITS ---
Vital Signs 05/11/25 13:21 Height 5 ft 6 in Weight 225 lb BMI 36.3 BP 90/60 Blood Pressure Location Lt brachial Position Sitting Pulse 106 H Pulse Source Pulse Oximeter Temp 97.1 F Temp Source Temporal Artery Scan Pulse Oximetry (%) 97 Oxygen Delivery Method Room Air Intake Visit Reasons: 6 Month F/U Director Of Group Sales Required: No Accompanied by: legal guardian Allergies amoxicillin (AMOXICILLIN) Allergy (Unknown, Verified 05/11/25 14:02) Unknown codeine (CODEINE) Allergy (Unknown, Verified 05/11/25 14:02) Unknown lorazepam (From ATIVAN) Allergy (Unknown, Verified 05/11/25 14:02) Unknown Medication List - Last Reconciled 05/11/25 by Liborio Mcdonald MD acetaminophen 500 mg PO Q6H PRN bacitracin 1 appl topical Q8H cetirizine (Zyrtec) 10 mg PO DAILY PRN diazepam 30 mg PO BEDTIME PRN hehdvnnqhhy-[id number]-[id number] A-D-aloe 1-10 % (A and D Diaper Rash Cream) topically daily PRN; apply after bathing and BMs. guanfacine 2 mg PO BEDTIME lactase (Lactaid) 3,000 units PO BID PRN lamotrigine 200 mg PO BID lamotrigine 50 mg PO BID loperamide 2 mg PO BID PRN melatonin 5 mg PO .QHS meloxicam 15 mg PO DAILY PRN miconazole nitrate 2% (Zeasorb AF) 1 appl topical BID risperidone 2 mg PO BID topiramate (Topamax) 200 mg PO BID Tobacco use date assessed: 05/11/25 Dental Screening Dental Screen Date: 05/11/25 Did you have a dental visit in the last 12 months?: Yes Did you have a dental problem in the last 6 months where you did not have access to dental care?: No Was dental information given to patient?: Patient has dentist HPI 6 Month F/U HPI Details Patient comes in today for his follow up visit - he is a patient of Dr. Castaneda Patient states that he has been experiencing increased symptoms of allergies often lately, especially runny nose and sneezing He has a standing order for Cetirizine PRN at his intermediate but he apparently was not asking for it so he has not been taking any Rx for his allergies lately Patient states that he feels okay otherwise He denies any headaches or dizziness; denies any sore throat Denies any chest pains, no shortness of breath No nausea/vomiting, no abdominal pain No change in bowel habits noted [facility] Medical History (Updated 05/12/25 @ 07:16 by Liborio Mcdonald MD) Epilepsy Paronychia of second toe of left foot Generalized anxiety disorder Seizures Arthralgia Anal pain Annual physical exam Cognitive impairment Mood disorder Seizure Meningitis CVA (cerebral vascular accident) Surgical History History of surgery on lower extremity History of surgery on arm History of ankle surgery Family History Maternal Grandfather Myocardial infarct Social History Housing: Assisted Living Facility Alcohol intake: never Patient Tobacco Use Status: Never used Tobacco e-Cigarette/Vaping Use: Never Used Second Hand Smoke Exposure: No service: No Current occupational status: unemployed Cognitive needs: Yes Hearing needs: No Vision needs: No Questionnaire PHQ-9 Over the last 2 weeks, how often have you been bothered by any of the following problems? 1. Little interest or pleasure in doing things: several days 2. Feeling down, depressed, or hopeless: several days 3. Trouble falling or staying asleep, or sleeping too much: nearly every day 4. Feeling tired or having little energy: several days 5. Poor appetite or overeating: several days 6. Feeling bad about yourself - or that you are a failure or have let yourself or your family down: several days 7. Trouble concentrating on things, such as reading the newspaper or watching television: not at all 8. Moving or speaking so slowly that other people could have noticed. Or the o pposite - being so fidgety or restless that you have been moving around a lot more than usual: not at all 9. Thoughts that you would be better off or of hurting yourself in some way: not at all Total score: 8 Depression Screening Interpretation: Positive Depression Screening Follow-up: Existing condition and In treatment Depression Screening Done: Yes 75603 - PHQ-9 Billing: Yes Source: Developed by Drs. Brody Sarabia, Eric Johnson and colleagues, with an educational kath from [employer]. Thrive Questionnaire Date Thrive assessed: 05/11/25 I am a: Patient What is your living situation today?: I have a steady place to live Within the past 12 months, did the food you bought not last and you didn't have the money to get more?: Never true Within the past 12 months, did you worry whether your food would run out before you got money to buy more?: Never true Do you have trouble paying for medicines?: No Do you have trouble getting transportation to medical appointments?: No Do you have trouble paying your heating and electricity bill?: No Do you have trouble taking care of your child, family member or friend?: No Do you have trouble with day-to-day activities such as bathing, preparing meals, shopping, managing finances, etc.?: No Are you currently unemployed and looking for a job?: No Are you interested in more education?: No Please select the resources that you would like help with: None Currently or been in a relationship where the following occur: I choose not to answer THRIVE Score: 0 AUDIT C Alcohol Use Questionnaire (AUDIT-C) 1. How often do you have a drink containing alcohol?: Never 3. How often do you have six or more drinks on one occasion?: Never Total Score: 0 Score Reviewed/Action Taken: Yes ROLAND-7 AMB Questionnaire ROLAND-7 Date ROLAND - 7 assessed: 05/11/25 Feeling nervous, anxious, or on edge: 1 = Several days Not being able to stop or control worryin = More than half the days Worrying too much about different things: 2 = More than half the days Trouble relaxin = More than half the days Being so restless that it is hard to sit still: 2 = More than half the days Becoming easily annoyed or irritable: 0 = Not at all Feeling afraid as if something awful might happen: 1 = Several days Total ROLAND-7 score (0-4 normal; 5-9 mild; 10-14 moderate; 15-21 severe): 10 Source: Developed by Drs. Brody Sarabia, Eric Johnson and colleagues, with an educational kath from [employer]. Review of Systems Const Denies chills, Denies fatigue, Denies fever(s) and Denies headache(s) ENT Denies dysphagia, Denies dizziness, Denies otalgia, Denies headache(s), Reports nasal discharge (on and off), Denies neck pain, Denies odynophagia, Denies sore throat and Denies throat swelling Card Denies chest pain, Denies palpitations and Denies dyspnea Resp Denies chest congestion, Denies cough and Denies dyspnea GI Denies abdominal pain, Denies constipation, Denies dysphagia, Denies heartburn, Denies diarrhea, Denies nausea, Denies odynophagia and Denies vomiting Denies difficulty urinating, Denies dysuria, Denies nocturia and Denies urinary frequency Musc Denies back pain and Denies neck pain Skin/Breast Denies rash Neuro Details: (+) residual right hemiparesis Denies dizziness and Denies headache(s) Endo Denies fatigue and Denies palpitations Aller/Immun Denies throat swelling Physical exam (Primary Care) Vital Signs: Last Vital Signs Temp 97.1 F 05/11/25 13:21 Pulse 106 H 05/11/25 13:21 BP 90/60 05/11/25 13:21 Pulse Ox 97 05/11/25 13:21 Oxygen Delivery Method Room Air 05/11/25 13:21 BMI result Body Mass Index 36.3 Tobacco/Smoking Status: Tobacco use Status Tobacco use date assessed 05/11/25 05/11/25 13:34 Patient Tobacco Use Status Never used Tobacco 05/11/25 13:34 e-Cigarette/Vaping Use Never Used 05/11/25 13:34 PHQ-9: PHQ-9 Score PHQ-9: Total score 8 05/11/25 14:08 Depression Screening Interpretation: Positive Depression Screening Follow-up: Existing condition and In treatment Thrive Assessment: Date of Thrive Assessment Date Thrive assessed 05/11/25 05/11/25 13:34 Currently or been in a relationship where the following occur: I choose not to answer Const General: no acute distress and alert HENMT Ears: Abnormal EAC present excessive cerumen bilateral and unable to visualize TM bilaterally Throat: Yes posterior oropharynx normal and Yes tonsils normal (no TP congestion) Neck Neck: Yes supple and No lymphadenopathy Thyroid: Thyroid normal Resp Auscultation: clear to auscultation bilaterally, no rales and no wheezes Cardio Rate: regular rate Rhythm: regular rhythm Heart sounds: no murmurs GI Palpation (GI): Soft to palpation and nontender Auscultation: normal bowel sounds General: Yes no CVA tenderness Back/Spine/Pelvis Back: no CVA tenderness Thoracic/Lumbar Spine: No lumbar spinal tenderness Skin Rashes: no rashes Neuro Other: (+) residual right-sided hemiparesis Extrem General: Yes no clubbing, cyanosis or edema Coding Level of Care Code Est Pt Level 3 (19894) Diagnoses Non-seasonal allergic rhinitis, unspecified trigger J30.89 Allergic rhinitis trigger: unspecified Allergic rhinitis seasonality: non-seasonal Nonintractable epilepsy without status epilepticus, unspecified epilepsy type G40.909 Epilepsy type: unspecified Intractability: not intractable Status epilepticus: without status epilepticus Generalized anxiety disorder F41.1 Bipolar 1 disorder F31.9 Obesity (BMI 30-39.9) E66.9 Additional Codes PHQ-9 - 21793 - PHQ-9 Billing: Yes ([id number]) Assessment & Plan Assessment & Plan (1) Allergic rhinitis: Code(s): J30.9 - Allergic rhinitis, unspecified Category: Medical Qualifiers: Allergic rhinitis trigger: unspecified Allergic rhinitis seasonality: non-seasonal Qualified Code(s): J30.89 - Other allergic rhinitis Plan: Continue Cetirizine 10 mg QD PRN - patient is reminded that he has a standing order for this at his intermediate and all he has to do is aspirate whenever he feels he needs to take this medication or if his allergy symptoms are bothering him (2) Epilepsy: Code(s): G40.909 - Epilepsy, unspecified, not intractable, without status epilepticus Category: Medical Qualifiers: Epilepsy type: unspecified Intractability: not intractable Status epilepticus: without status epilepticus Qualified Code(s): G40.909 - Epilepsy, unspecified, not intractable, without status epilepticus Plan: Controlled - reports no seizures since 2011 Continue Lamotrigine 250 mg BID and Topiramate 200 mg BID Follow up with neurology as scheduled (3) Generalized anxiety disorder: Code(s): F41.1 - Generalized anxiety disorder Category: Medical Plan: Continue Diazepam 30 mg Q HS (4) Bipolar 1 disorder: Comment: Dr. Morrow Code(s): F31.9 - Bipolar disorder, unspecified Category: Medical Plan: Continue Guanfacine 2 mg Q HS and Risperidone 2 mg BID Follow up with psychiatry as scheduled (5) Obesity (BMI 30-39.9): Code(s): E66.9 - Obesity, unspecified Category: Medical Plan: Reinforced diet; exercise and weight loss are unrealistic given patient's physical and psychiatric issues Plan To return as scheduled in November 2025 for his annual physical examination with his PCP
== END 2025-05-11 14:08 | disposition home or self-care (01) ==
LOC: HO.HMCH 13:18
PROVIDERS: PCP Internal Medicine; Visit Provider Internal Medicine
DX: G40.909 Epilepsy, unspecified, not intractable, without status epilepticus (principal); F31.9 Bipolar disorder, unspecified; E66.9 Obesity, unspecified; Z68.36 Body mass index [BMI] 36.0-36.9, adult; J30.89 Other allergic rhinitis; F41.1 Generalized anxiety disorder

== ENCOUNTER → 2025-05-11 13:18 | Outpatient (BNVA) | payer OTHER, SELFPAY | PROVIDERS: PCP Internal Medicine; Visit Provider Internal Medicine | DX: F41.1 Generalized anxiety disorder (principal); J30.89 Other allergic rhinitis; G40.909 Epilepsy, unspecified, not intractable, without status epilepticus; E66.9 Obesity, unspecified; F31.9 Bipolar disorder, unspecified; Z68.36 Body mass index [BMI] 36.0-36.9, adult | CPT/HCPCS: 96127; 99212 ==

== ENCOUNTER 2025-08-08 11:12 | Outpatient (AMB) | payer OTHER, SELFPAY ==
[2025-08-08 11:39] VITALS: BP 110/90; PULSE 73; TEMP 36.8; O2SAT 98; BMI 36.2
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
--- OUTSIDE RECORDS SUMMARY | 2025-08-08 15:16 | XMS_ITS | Encounter Summary ---
Author Organization [facility] Address [address] [place] [address] Phone Care Team Providers Care Transition Mgr Rn Name Role Phone Олег Devine MD Primary Care Provider [phone] Encounter Details Date Type Department Care Team (Late st Contact Info) Description 05/13/2010 Documentation [facility] Family Medicine [address] [place], [place] [id number] Family Medicine, Physician [address] [place], [place] [address] Social History Tobacco Use Types Packs/Day Years [...] on filedocumented in this encounter Care Teams Transition Mgr Rn Relationship Specialty Start Date End Date Олег Devine MD [address] [place] [address] [place] [id number] PCP - General 05/28/17 04/08/23 documented as of this encounter
--- OUTSIDE RECORDS SUMMARY | 2025-08-08 15:16 | XMS_ITS | Encounter Summary ---
Author Organization [facility] Address [address] [place] [address] Phone Care Team Providers Care Clinical Education Specialist Name Role Phone Олег Devine MD Primary Care Provider [phone] Encounter Details Date Type Department Care Team (Late st Contact Info) Description 12/31/2009 Documentation [facility] [place] Medicine [address] [place], [place] [id number] Family Medicine, Physician [address] [place] [address] Social History Tobacco Use Types Packs/Day Years [...] on filedocumented in this encounter Care Teams Clinical Education Specialist Relationship Specialty Start Date End Date Олег Devine MD [address] [place] [address] [place] [address] PCP - General 05/28/17 04/08/23 documented as of this encounter
--- OUTSIDE RECORDS SUMMARY | 2025-08-08 15:16 | XMS_ITS | Encounter Summary ---
Author Organization [facility] Address [address] [place] [address] Phone Care Team Providers Care Abnormal Psychology Teacher Name Role Phone Олег Devine MD Primary Care Provider [phone] Encounter Details Date Type Department Care Team (Late st Contact Info) Description 06/03/2017 Conversion Encounter [facility] [address] [place] [address] Social History Tobacco Use Types Packs/Day Years [...] on filedocumented in this encounter Care Teams Abnormal Psychology Teacher Relationship Specialty Start Date End Date Олег Devine MD [address] [place] [address] PCP - General 05/28/17 04/08/23 documented as of this encounter
--- OUTSIDE RECORDS SUMMARY | 2025-08-08 15:16 | XMS_ITS | Encounter Summary ---
Author Organization [facility] Address [address] [place] [address] Phone Care Team Providers Care Mechanical Cad Drafter Name Role Phone Олег Devine MD Primary Care Provider [phone] Encounter Details Date Type Department Care Team (Late st Contact Info) Description 04/22/2010 Documentation [facility] Family Medicine [address] [place], [place] [phone] Family Medicine, Physician [address] [place], [place] [address] Social History Tobacco Use Types Packs/Day Years [...] on filedocumented in this encounter Care Teams Mechanical Cad Drafter Relationship Specialty Start Date End Date Олег Devine MD [address] [place] [address] [place] [id number] PCP - General 05/28/17 04/08/23 documented as of this encounter
--- OUTSIDE RECORDS SUMMARY | 2025-08-08 15:16 | XMS_ITS | Encounter Summary ---
Author Organization [facility] Address [address] [place] [phone] Phone Care Team Providers Care Pipe Smoking Machine Operator Name Role Phone Олег Devine MD Primary Care Provider [phone] Encounter Details Date Type Department Care Team (Late st Contact Info) Description 02/24/2010 Documentation [facility] Family Medicine [address] [place], [place] [phone] Family Medicine, Physician [address] [place], [place] [address] Social History Tobacco Use Types Packs/Day Years [...] on filedocumented in this encounter Care Teams Pipe Smoking Machine Operator Relationship Specialty Start Date End Date Олег Devine MD [address] [place] [address] [place] [address] PCP - General 05/28/17 04/08/23 documented as of this encounter
--- OUTSIDE RECORDS SUMMARY | 2025-08-08 15:16 | XMS_ITS | Clinical Summary ---
Author Organization [facility] Address [address] [address] Phone Care Team Providers Care Human Services Assistant Name Role Phone Brigette Sow MD Primary Care Provider Allergies Active Allergy Reactions Criticality Noted Date [...] adult health update form today and his penitentiary paperwork in the office. he will go [...] as directed. He is living at his penitentiary at present. Assessment & Plan (08/04/2018 3:48 [...] and get back in to see the print inspector. He will continue to work on diet [...] 2:59 PM EST): Darion presents with his penitentiary staff member today to discuss sleep issues. [...] start a medication. I filled out the penitentiary paperwork today in the office. They will call if there is any other issues or concerns. 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 He is in a penitentiary. Arminda lockhart 08/31/2017 Immunizations Immunization Administration Dates Next Due DTaP 10/03/1999, 3,03/14/1992,01/11,1991 Dtap, 5 Pertussis Antigens 10/03/1999,,03/14/1992,01/11,1991 HPV,quadrivalent 01/17/2015,05/03/2013, 2 Hepatitis B 06/14/2000,12/05/1999,10/03/1999 Hib, unspecified formulation 08/28/1993, 03/14/1992,01/12/1992,11/16 Hib,PRP-T 08/28/1993, 2,01/12/1992,11/16 INFLUENZA, SPLIT VIRUS, TRIV ALENT W/ PRESERVATIVE IM 08/02/2009 IPV 10/03/1999, 3,01/12/1992,11/16 MMR 12/09/1999,08/28/1993 Meningococcal MCV4P 04/03/2008 Td (adult),2 [...] Date Job End Date works at a [employer] program Not on file Not on file [...] POTASSIUM LEVEL 11/25/2023 05/25/2023, 02/0 02/2019, 01/14/2017 INFLUENZA VACCINE (#1) 2025 , 07/25/2019, 08/02/2009 COVID-19 VACCINE ( season) 2025 08/19/2021, 11/21/2020, 10/31/2020 HIB VACCINES Completed 08/28/1993, [...] EDT) SODIUM 141 133 - 146 mmol/L [facility] POTASSIUM 4.0 3.3 - 5.1 mmol/L [facility] CHLORIDE 109(H) 96 - 108 mmol/L [facility] CO2 22 21 - 35 mmol/L [facility] BUN 10 6 - 19 mg/dL [facility] CREATININE 0.80 0.5 - 1.5 mg/dL [facility] GLUCOSE 96 70 - 99 mg/dL [facility] ALBUMIN 4.4 3.9 - 4.8 g/dL [facility] TOTAL PROTEIN 7.2 6.5 - 8.0 g/dL [facility] CALCIUM 9.4 8.4 - 10.3 mg/dL [facility] ALKALINE PHOSPHATASE 82 39 - 117 U/L [facility] TOTAL BILIRUBIN <0.2 0.0 - 1.2 mg/dL [facility] AST 22 0 - 37 U/L [facility] ALT 23 0 - 40 U/L [facility] GLOBULIN 2.8 1 - 4.8 g/dL [facility] EGFR >120 >59 mL/min/1.7 3m2 [facility] Comment:Estimated glomerular filtration rate calculated using the CKD-EPI refit equation. ANION GAP 14 10 - 20 mmol/L [facility] Blood 05/25/2023 2:06 PM EDT 05/25/2023 2:12 PM EDT us Luba Trammell MD, MPH LAB BLOOD ORDERABLES Fin al Result [facility] [address] [place] [address] * Lipid panel (11/22/2018 11:02 AM EST) HDL 39 mg/dL [facility] Comment: Interpretation <40 mg/dL: Low HDL cholesterol (major risk factor for CHD) Greater than or equal to 60 mg/dL: High HDL cholesterol ( negative risk factor for CHD) HDL - cholesterol is affected by a number of factors, e.g. smoking, excerise, hormones, sex and age. CHOLESTEROL 149 0 - 240 mg/dL [facility] TRIGLYCERIDES 100 30 - 160 mg/dL [facility] LDL 90 50 - 129 mg/dL [facility] Comment: LDL levels in terms of risk for coronary heart disease: <100 mg/dL: Optimal 100-129 mg/dL: Near or above optimal 130-159 mg/dL: Borderline high 160-189 mg/dL: High >190 mg/dL: Very High CARDIAC RISK RATIO 3.8 3.4 - 5.0 [facility] Blood 11/22/2018 11:0 2 AM EST 11/22/2018 11:05 AM EST Noel Faulkner DO LAB BLOOD ORDERABLES Final [facility] t [facility] [address] [place] [address] from Last 3 Months or Most Recently Relevant to Health Maintenance Insurance ACO ACO ACO ACO [employer] [place] [address] [place] [address] ACO Care Teams Human Services Assistant Relationship Specialty Start Date End Date Brigette Sow MD [address] [facility] [place] [address] PCP - General Internal Medicine 03/05/21 Additional Source Comments The information contained in this document represents components of the legal health record. It is not the complete legal health record.[facility]
--- OUTSIDE RECORDS SUMMARY | 2025-08-08 15:16 | XMS_ITS | Encounter Summary ---
Author Organization [facility] Address [address] [place] [id number] Phone Care Team Providers Care Aviation Safety Officer Name Role Phone Олег Devine MD Primary Care Provider [phone] Encounter Details Date Type Department Care Team (Late st Contact Info) Description 12/26/2009 Documentation [facility] [place] [address] [place], [place] [id number] Family Medicine, Physician [address] [place], [place] [id number] Social History Tobacco Use Types Packs/Day Years [...] on filedocumented in this encounter Care Teams Aviation Safety Officer Relationship Specialty Start Date End Date Олег Devine MD [address] [place] [address] [place] [id number] PCP - General 05/28/17 04/08/23 documented as of this encounter
--- OUTSIDE RECORDS SUMMARY | 2025-08-08 15:16 | XMS_ITS | Clinical Summary ---
Author Organization [facility] Address [address] [place] [phone] Phone Care Team Providers Care Union Representative Name Role Phone Unavailable Primary Care Provider [...] of Hyperlipidemia, No family history of Sudden /AK under age 55, No family history of [...] 10/03/1999, Additional history exists Influenza Vaccines (#1) 2025 08/02/2009 COVID-19 Vaccine ( season) 2025 HIB Vaccines Completed 08/28/1993, 02/16, 01/12/1992, Additional [...]
== END 2025-08-08 13:27 | disposition home or self-care (01) ==
PROVIDERS: PCP Internal Medicine; Visit Provider Physician Assistant Medical
DX: S00.81XA Abrasion of other part of head, initial encounter (principal); Y09 Assault by unspecified means

== ENCOUNTER → 2025-08-08 11:12 | Outpatient (BNVA) | payer OTHER, SELFPAY | PROVIDERS: PCP Internal Medicine; Visit Provider Physician Assistant Medical | DX: S00.81XA Abrasion of other part of head, initial encounter (principal); S01.511A Laceration without foreign body of lip, initial encounter; S80.219A Abrasion, unspecified knee, initial encounter; W03.XXXA Other fall on same level due to collision with another person, initial encounter; Y93.9 Activity, unspecified; Y92.9 Unspecified place or not applicable; Y99.9 Unspecified external cause status | CPT/HCPCS: 99212 ==